=== PATIENT | male | born 1970 | race Caucasian/White ===

== ENCOUNTER 2021-04-12 11:45 | Emergency (ER) | payer OTHER ==
[2021-04-12 12:43] LABS: Absolute Lymphocytes (CBC) 1.4 K/uL (0.7-4.9); Basophils % 0.8 % (0-1.3); Hematocrit 26.2 % (39.6-49.0); Lymphocytes % 22.1 % (15.3-44.8); MPV 8.3 fL (7.6-11.3); RBC Red Blood Cell Count 3.01 M/uL (4.33-5.43)
[2021-04-12 12:47] LABS: Protime INR 1.05
[2021-04-12 13:07] LABS: ALT/SGPT 27 U/L (12-78); AST/SGOT 16 U/L (15-37); Alkaline Phosphatase 53 U/L (45-117); BUN Blood Urea Nitrogen 66 mg/dL (7-18); Bicarbonate 29 mmol/L (21-32); Bilirubin Direct 0.1 mg/dL (0-0.2); Bilirubin Total 0.5 mg/dL (0.2-1.0); Glucose Level 92 mg/dL (74-106); Magnesium 2.5 mg/dL (1.8-2.4); NT PRO-BNP 6002 pg/mL (<125); Protein, Total 7.5 g/dL (6.4-8.2); Sodium Level 143 mmol/L (136-145); Troponin (Emerg Dept Use Only) < 0.02 ng/mL (0.0-0.045)
--- NOTE | 2021-04-12 13:13 | RAD REPORT ---
EXAM DESCRIPTION: Saraht Single View04/12/2021 1:03 pm CLINICAL HISTORY: Chest pain COMPARISON: 2011 FINDINGS: The lungs appear clear of acute infiltrate. The heart is mildly enlarged. Central venous catheter has its tip the superior vena cava . Upper lobe vessels are prominent indicative of pulmonary venous hypertension
--- NOTE | 2021-04-12 14:18 | RAD REPORT ---
EXAM DESCRIPTION: CT - Head Brain Wo Cont - 04/12/2021 1:45 pm CLINICAL HISTORY: Dizziness/weakness COMPARISON: None. TECHNIQUE: Computed axial tomography of the head was obtained. IV contrast was not requested. All CT scans are performed using dose optimization technique as appropriate and may include automated exposure control or mA/KV adjustment according to patient size. FINDINGS: An intracranial bleed is not seen . The ventricles are normal in caliber. No extra-axial fluid collection is noted. Fluid within the sinuses/ mastoids is not seen. IMPRESSION: No acute intracranial abnormality is seen. If patient's symptoms persist MRI of the bra in would be recommended.
--- NOTE | 2021-04-12 16:08 | EDPHYS ---
Physician Documentation [facility] Name: Galo Abarca Age: 50 yrs Sex: Male : 1970 Arrival Date: 04/12/2021 Time: 11:47 Bed 15 Private MD: ED Physician Azam Wu HPI: 04/12 13:06 This 50 yrs old Male presents to ER via Ambulatory with complaints of High pm1 Blood Pressure, Weakness. 13:06 The patient has elevated blood pressure and discovered this at home. Onset: The pm1 symptoms/episode began/occurred yesterday. Modifying factors: The symptoms are aggravated by Unknown. Patient missed dialysis today due to rescheduling by dialysis nurse. Associated signs and symptoms: Pertinent positives: headache, Left arm sensation of weakness without actual focal weakness, Pertinent negatives: chest pain, dizziness, nausea, vomiting. Severity of symptoms: in the emergency department the blood pressure is unchanged. The patient has not experienced similar symptoms in the past. The patient has not recently seen a physician. Historical: - Allergies: 11:56 No Known Allergies; aa5 - PMHx: 11:56 Dialysis; Hypertensive disorder; aa5 - PSHx: 11:56 Dialysis catheter to right upper chest; aa5 - Immunization history:: Client reports having NOT received the Covid vaccine. - Social history:: Smoking status: Patient denies any tobacco usage or history of. ROS: 13:06 Constitutional: Negative for fever, chills, and weight loss. pm1 13:06 Cardiovascular: Negative for chest pain, palpitations, and edema, Respiratory: Negative for shortness of breath, cough, wheezing, and pleuritic chest pain, Abdomen/GI: Negative for abdominal pain, nausea, vomiting, diarrhea, and constipation, Back: Negative for injury and pain, MS/Extremity: Negative for injury and deformity, Skin: Negative for injury, rash, and discoloration. 13:06 Neuro: Positive for headache. 13:06 All other systems are negative. Exam: 13:06 Constitutional: This is a well developed, well nourished patient who is awake, alert, pm1 and in no acute distress. Head/Face: Normocephalic, atraumatic. 13:06 Abdomen/GI: Soft, non-tender, with normal bowel sounds. No distension or tympany. No guarding or rebound. No evidence of tenderness throughout. Back: No spinal tenderness. No costovertebral tenderness. Full range of motion. Skin: Warm, dry with normal turgor. Normal color with no rashes, no lesions, and no evidence of cellulitis. MS/ Extremity: Pulses equal, no cyanosis. Neurovascular intact. Full, normal range of motion. 13:06 Eyes: Exam is negative for acute changes, Extraocular movements: intact throughout, Sclera: no acute changes, icterus, is not appreciated. 13:06 ENT: Exam is negative for acute changes, Mouth: Lips: normal, moist, Oral mucosa: normal, pink and intact, moist. 13:06 Cardiovascular: Exam negative for acute changes, Rate: normal, Rhythm: regular, Pulses: no pulse deficits are appreciated, Edema: is not appreciated. 13:06 Respiratory: Exam negative for acute changes, respiratory distress, shortness of breath. 13:06 Neuro: Exam negative for acute changes, Orientation: is normal, Mentation: is normal, Cranial nerves: CN II- XII are normal as tested, Cerebellar function: normal finger to nose testing, Motor: moves all fours, strength is 5/5 in all extremities, Sensation: is normal, no obvious gross deficits. Vital Signs: 11:52 BP 193 / 102; Pulse 87; Resp 20 S; Temp 99.3(TE); Pulse Ox 96% on R/A; Weight 158.76 kg aa5 (R); Height 6 ft. 2 in. (187.96 cm) (R); 13:24 BP 179 / 88; Pulse 81; Resp 12; Pulse Ox 100% on R/A; tw5 13:53 BP 201 / 99 LA Sitting (auto/lg); Pulse 74; Resp 14; Pulse Ox 100% on R/A; tw5 13:53 BP 204 / 109 RA Sitting (man/lg); Pulse 74; Resp 14; Pulse Ox 100% on R/A; tw5 14:30 BP 169 / 73; Pulse 70; Resp 18; Pulse Ox 100% ; tw5 15:00 BP 154 / 69; Pulse 72; Resp 14; Pulse Ox 100% on R/A; Pain 0/10; tw5 15:15 BP 177 / 83; Pulse 67; Resp 13; Pulse Ox 100% on R/A; tw5 16:00 BP 174 / 84; Pulse 66; Resp 18; Pulse Ox 100% on R/A; tw5 11:52 Body Mass Index 44.94 (158.76 kg, 187.96 cm) aa5 NIH Stroke Scale Scores: 13:31 NIHSS Score: 0 tw5 MDM: 12:21 Patient medically screened. pm1 16:05 Data reviewed: vital signs. Data interpreted: Pulse oximetry: on room air is 100 %. pm1 Interpretation: normal. Counseling: I had a detailed discussion with the patient and/or guardian regarding: the historical points, exam findings, and any diagnostic results supporting the discharge/admit diagnosis, lab results, radiology results, the need for outpatient follow up, a family practitioner, a neurologist, to return to the emergency department if symptoms worsen or persist or if there are any questions or concerns that arise at home. 04/12 12:20 Order name: Basic Metabolic Panel; Complete Time: 13:17 tc5 04/12 12:20 Order name: CBC with Diff; Complete Time: 13:17 tc5 04/12 12:20 Order name: LFT's; Complete Time: 13:17 tc5 04/12 12:20 Order name: Magnesium; Complete Time: 13:17 tc5 04/12 12:20 Order name: NT PRO-BNP; Complete Time: 13:17 tc5 04/12 12:20 Order name: PT-INR; Complete Time: 13:17 tc5 04/12 12:20 Order name: Troponin (emerg Dept Use Only); Complete Time: 13:17 tc5 04/12 12:20 Order name: XRAY Chest (1 view); Complete Time: 13:17 tc5 04/12 12:20 Order name: EKG; Complete Time: 12:21 tc5 04/12 12:20 Order name: Cardiac monitoring; Complete Time: 12:31 tc5 04/12 12:20 Order name: EKG - Nurse/Tech; Complete Time: 12:31 tc5 04/12 12:20 Order name: IV Saline Lock; Complete Time: 13:15 tc5 04/12 12:20 Order name: Labs collected and sent; Complete Time: 12:20 tc5 04/12 13:18 Order name: CT Head Brain wo Cont; Complete Time: 15:17 pm1 04/12 12:20 Order name: O2 Per Protocol; Complete Time: 12:31 tc5 04/12 12:20 Order name: O2 Sat Monitoring; Complete Time: 12:31 tc5 Administered Medications: No medications were administered Disposition: 04/13 08:48 Co-signature as Attending Physician, Azam Wu MD I agree with the assessment and kdr plan of care. Disposition Summary: 04/12/21 16:07 Discharge Ordered Location: Home pm1 Problem: new pm1 Symptoms: have improved pm1 Condition: Stable pm1 Diagnosis - Essential (primary) hypertension pm1 - Weakness pm1 Followup: pm1 - With: Emergency Department - When: As needed - Reason: Worsening of condition Followup: pm1 - With: Private Physician - When: 2 - 3 days - Reason: Recheck today's complaints, Continuance of care, Re-evaluation by your physician Discharge Instructions: - Discharge Summary Sheet pm1 - Hypertension, Adult pm1 - Weakness pm1 - How to Take Your Blood Pressure, Pabi-me-Hpxi pm1 - Managing Your Hypertension pm1 Forms: - Medication Reconciliation Form pm1 - Thank You Letter pm1 - Antibiotic Education pm1 - Prescription Opioid Use pm1 NIH Stroke Scale - NIH Stroke Score Date: 04/12/2021 Time: 13:31 Total Score = 0 1a. Level of Consciousness (LOC) - 0(Alert) 1b. Level of Consciousness (LOC) (Month \T\ Age) - 0(Both) 1c. LOC Commands (Open \T\ Closes Eyes/Chief Analytics Officer) - 0(Both) 2. Best Gaze (Lateral Gaze Paresis) - 0(Normal) 3. Visual Field Loss - 0(No visual loss) 4. Facial Palsy - 0(Normal) 5a. Left Arm: Motor (10-second hold) - 0(No drift) 5b. Right Arm: Motor (10-second hold) - 0(No drift) 6a. Left Leg: Motor (5-second hold - always test supine) - 0(No drift) 6b. Right Leg: Motor (5-second hold - always test supine) - 0(No drift) 7. Limb Ataxia (finger/nose \T\ heel/cedillo - test with eyes open) - 0(Absent) 8. Sensory Loss (pinprick arms/legs/face) - 0(Normal) 9. Best Language: Aphasia (description/naming/reading) - 0(No aphasia) 10. Dysarthria (speech clarity - read or repeat words) - 0(Normal) 11. Extinction and Inattention (visual/tactile/auditory/spatial/personal) - 0(No abnormality) Initials: tw5 Signatures: Dispatcher [employer] Azam Benavides MD MD kdr Calderon, Audri, RN RN aa5 Waqar Pereira, DENTAL SERVICES DIRECTOR DENTAL SERVICES DIRECTOR pm1 Marium Stokes RN RN tc5
--- NOTE | 2021-04-12 16:08 | ER ---
Nurse's Notes [facility] Name: Galo Abarca Age: 50 yrs Sex: Male : 1970 Arrival Date: 04/12/2021 Time: 11:47 Bed 15 Private MD: Diagnosis: Essential (primary) hypertension;Weakness Presentation: 04/12 11:52 Chief complaint: Patient states: "today my blood pressure has been high and my nurse aa5 and my doctor recommended for me to come to the ER". Pt states "I also feel like my left arm is weak and my I feel my head is kind of foggy". No arm drift noted, equal strength noted to mansi arms and legs. Coronavirus screen: At this time, the client does not indicate any symptoms associated with coronavirus-19. Ebola Screen: Patient negative for fever greater than or equal to 101.5 degrees Fahrenheit, and additional compatible Ebola Virus Disease symptoms. Risk Assessment: Do you want to hurt yourself or someone else? Patient reports no desire to harm self or others. Onset of symptoms was April 2021. 11:52 Method Of Arrival: Ambulatory aa5 11:52 Acuity: JAMMIE 2 aa5 11:52 Initial Sepsis Screen: Does the patient meet any 2 criteria? No. Patient's initial aa5 sepsis screen is negative. Does the patient have a suspected source of infection? No. Patient's initial sepsis screen is negative. 13:53 No acute neurological deficit is noted. tw5 Triage Assessment: 16:15 The onset of the patients symptoms was at an unknown time. General: Appears in no tw5 apparent distress. Historical: - Allergies: 11:56 No Known Allergies; aa5 - PMHx: 11:56 Dialysis; Hypertensive disorder; aa5 - PSHx: 11:56 Dialysis catheter to right upper chest; aa5 - Immunization history:: Client reports having NOT received the Covid vaccine. - Social history:: Smoking status: Patient denies any tobacco usage or history of. Screenin:31 Abuse screen: Denies threats or abuse. Denies injuries from another. Nutritional tw5 screening: No deficits noted. Tuberculosis screening: No symptoms or risk factors identified. Fall Risk None identified. Assessment: 13:31 VAN Scoring: Arm Drift: Patients demonstrates NO arm weakness. Patient is VAN Negative. tw5 The patient has not been NPO before screening. The patient is alert, and able to follow commands. The patient does not exhibit slurred or garbled speech. The patient is not exhibiting difficulty speaking. The patient does not exhibit difficulty understanding words. The patient is able to swallow own secretions with no drooling or need for suction. Patient tolerated one teaspoon of water. No drooling, immediate coughing, gurgling, or clearing of the throat was noted. The patient tolerated 90mL of water. No drooling, immediate coughing, gurgling, or clearing of the throat was noted. The patient passed the bedside swallow screening. Oral medications may be given as ordered. Contact Physician for further diet orders. Provider notified of bedside swallow screening results: Waqar Pereira WORK ENVIRONMENT SAFETY INSPECTOR. T-PA (Activase) Screening: Indications: Definite evidence of stroke, ischemic, embolic, or hypertensive: No. General: Appears in no apparent distress. Behavior is calm, cooperative, appropriate for age. Neuro: Level of Consciousness is awake, alert, obeys commands, Oriented to person, place, time, situation, Optometry Assistant are equal bilaterally. 13:33 General: [facility] Randall notifed that patient had his own clonidine medication. Given the tw5 OK to take 0.1mg. Will reevaluate blood pressure when patient returns from CT. 13:52 Reassessment: Patient states feeling better. Patient states symptoms have improved. tw5 14:38 Reassessment: at bedside. tw5 15:00 Reassessment: Patient states feeling better. Patient states symptoms have improved. tw5 General: Appears in no apparent distress. comfortable, Behavior is calm, cooperative, appropriate for age. Pain: Denies pain. Vital Signs: 11:52 BP 193 / 102; Pulse 87; Resp 20 S; Temp 99.3(TE); Pulse Ox 96% on R/A; Weight 158.76 kg aa5 (R); Height 6 ft. 2 in. (187.96 cm) (R); 13:24 BP 179 / 88; Pulse 81; Resp 12; Pulse Ox 100% on R/A; tw5 13:53 BP 201 / 99 LA Sitting (auto/lg); Pulse 74; Resp 14; Pulse Ox 100% on R/A; tw5 13:53 BP 204 / 109 RA Sitting (man/lg); Pulse 74; Resp 14; Pulse Ox 100% on R/A; tw5 14:30 BP 169 / 73; Pulse 70; Resp 18; Pulse Ox 100% ; tw5 15:00 BP 154 / 69; Pulse 72; Resp 14; Pulse Ox 100% on R/A; Pain 0/10; tw5 15:15 BP 177 / 83; Pulse 67; Resp 13; Pulse Ox 100% on R/A; tw5 16:00 BP 174 / 84; Pulse 66; Resp 18; Pulse Ox 100% on R/A; tw5 11:52 Body Mass Index 44.94 (158.76 kg, 187.96 cm) aa5 Vitals: 14:30 Cardiac Rhythm Assessment Regular Sinus rhythm. tw5 NIH Stroke Scale Scores: 13:31 NIHSS Score: 0 tw5 ED Course: 11:47 Patient arrived in ED. ds1 11:52 Arm band placed on. aa5 11:55 Triage completed. aa5 11:56 Baljit Tejada RN is Primary Nurse. ch5 12:19 Waqar Pereira NP is PHCP. pm1 12:19 Azam Wu MD is Attending Physician. pm1 13:03 XRAY Chest (1 view) In Process Unspecified. EDMS 13:31 No apparent distress. Patient moved to CT. tw5 13:31 Patient has correct armband on for positive identification. Bed in low position. Call tw5 light in reach. Side rails up X 1. library monitor on. Pulse ox on. NIBP on. Door closed. 13:44 CT Head Brain wo Cont In Process Unspecified. EDMS 14:38 No provider procedures requiring assistance completed. tw5 15:41 Primary Nurse role handed off by Baljit Tejada, ARAM tw5 15:41 Olena Samuel is Primary Nurse. tw5 16:15 Patient did not have IV access during this emergency room visit. tw5 Administered Medications: No medications were administered Outcome: 16:07 Discharge ordered by . pm1 16:14 Discharged to home ambulatory. tw5 16:14 Condition: good 16:14 Discharge instructions given to patient, Instructed on discharge instructions, follow up and referral plans. Demonstrated understanding of instructions. 16:15 Patient left the ED. tw5 NIH Stroke Scale - NIH Stroke Score Date: 04/12/2021 Time: 13:31 Total Score = 0 1a. Level of Consciousness (LOC) - 0(Alert) 1b. Level of Consciousness (LOC) (Month \\T\\ Age) - 0(Both) 1c. LOC Commands (Open \\T\\ Closes Eyes/Manager Warehouse) - 0(Both) 2. Best Gaze (Lateral Gaze Paresis) - 0(Normal) 3. Visual Field Loss - 0(No visual loss) 4. Facial Palsy - 0(Normal) 5a. Left Arm: Motor (10-second hold) - 0(No drift) 5b. Right Arm: Motor (10-second hold) - 0(No drift) 6a. Left Leg: Motor (5-second hold - always test supine) - 0(No drift) 6b. Right Leg: Motor (5-second hold - always test supine) - 0(No drift) 7. Limb Ataxia (finger/nose \\T\\ heel/cedillo - test with eyes open) - 0(Absent) 8. Sensory Loss (pinprick arms/legs/face) - 0(Normal) 9. Best Language: Aphasia (description/naming/reading) - 0(No aphasia) 10. Dysarthria (speech clarity - read or repeat words) - 0(Normal) 11. Extinction and Inattention (visual/tactile/auditory/spatial/personal) - 0(No abnormality) Initials: tw5 Signatures: Dispatcher [employer] [facility] LottKaro harkins ds1 Taty Molina, RN RN aa5 Waqar Pereira, JORGE LUIS WORK ENVIRONMENT SAFETY INSPECTOR pm1 Baljit Tejada RN RN ch5 Olena Samuel tw5 Corrections: (The following items were deleted from the chart) 11:58 11:52 Chief complaint: Patient states: "today my blood pressure has been high aa5 and my nurse and my doctor recommended for me to come to the ER". Pt states "I also feel like my left arm is weak and my I feel my head is kind of foggy". aa5
[2021-04-12 16:26] VITALS: TEMP 99.3
[2021-04-12 16:28] VITALS: O2SAT 100
[2021-04-12 16:35] VITALS: BP 174/84
--- NOTE | 2021-04-13 11:00 | EKG ---
Test Date: 2021-04-12 Test Time: 12:26:26 [employer] Titles: [employer] MEASUREMENT RESULTS: Intervals: Rate: 83 ND: 202 QRSD: 108 QT: 406 QTc: 477 [place]: P: 51 ND: 202 QRS: 53 T: 47 INTERPRETIVE STATEMENTS: Normal sinus rhythm Normal ECG Compared to ECG 02/21/2012 10:03:48 No significant changes Electronically Signed On 04-13-21 10:57:04 CDT by Oren Sosa
== END 2021-04-12 16:15 | disposition home or self-care (01) ==
LOC: ER 11:45
DX: I10 Essential (primary) hypertension (principal); R53.1 Weakness; Z99.2 Dependence on renal dialysis
CPT/HCPCS: 36415; 70450; 71045; 80048; 80076; 83735; 83880; 84484; 85025; 85610; 93005; 99284

== ENCOUNTER 2021-08-30 19:04 | Emergency (ER) | payer BC, OTHER ==
--- OUTSIDE RECORDS SUMMARY | 2021-08-30 19:07 | XMS REPORT | Continuity of Care Document ---
:1970 Author Organization [facility] t Address [address] [place] [address] Care Team Providers Name Role Phone RONIT Attending Clinician Unavailable WAYNE Attending Clinician Unavailable MD Candida WALKER Attending Clinician Unavailable AARON Attending Clinician Unavailable JOSE CARRINGTON Attending Clinician Unavailable Byron Attending Clinician Unavailable MD MICHAEL BLACK Attending Clinician Unavailable CSEAR Admitting Clinician Unavailable JORGE LUIS PELAYO Admitting Clinician Unavailable JOSE CARRINGTON Admitting Clinician Unavailable Byron Admitting Clinician Unavailable WAYNE Admitting Clinician Unavailable MD MICHAEL BLACK Admitting Clinician Unavailable AARON Admitting Clinician Unavailable MD Candida WALKER Admitting Clinician Unavailable Payers Payer Name Policy Type Policy Number Effective Date Expiration Date S patrick [employer] OPEN ACCESS [id number] 2021 00:00:00 HMO NAP Problems This patient has no known problems. Allergies, Adverse Reactions, Alerts Allergy Allergy Status Severity Reaction(s) Onset Inactive Treating Comm ents Source Name Type Date Date Clinician No Known DA Active U 2020-07 [facility] 07-31 Clear s 00:00: Eli 00 [facility] NO KNOWN Allergy Active [facility] Medications This patient has no known medications. Vital Signs Vital Name Observation Time Observation Value Comments Source HEIGHT 2021-06-11 13:22:00 188 cm WEIGHT 2021-06-11 13:22:00 145.151 kg WEIGHT 2021-06-07 11:55:00 145.151 kg HEIGHT 2021-06-07 11:55:00 188 cm HEIGHT 2021-06-11 13:22:00 188 cm WEIGHT 2021-06-11 13:22:00 145.151 kg WEIGHT 2021-06-07 11:55:00 145.151 kg HEIGHT 2021-06-07 11:55:00 188 cm Procedures Procedure Date / Time Performed Performing Clinician Cresencio mays [id number] 2021-06-01 00:00:00 AFSHIN [facility] [id number] 2021-05-31 00:00:00 JENIFER MICHELLE [facility] [id number] 2021-05-31 00:00:00 AFSHIN [facility] Encounters Start End Encounter Admission Attending Care Care Encounter Source Date/Time Date/Time Type Type Clinicians Facility Department ID 2021-08-17 2021-08-17 Outpatient RONIT, [facility] [id number] [place] 00:00:00 00:00:00 INDERJIT [address] 2021-06-28 2021-06-30 Inpatient VIRGINIE BLACK [facility] 064 [id number] [place] 00:00:00 00:00:[address] 2021-06-24 2021-06-24 Outpatient AARON [facility] [id number] [place] 00:00:00 00:00:00 NOA [address] 2021-06-11 2021-06-11 Outpatient EL ZEB, [facility] [id number] [id number] [facility] 11:20:00 15:40:00 IMRAN 2021-06-09 2021-06-09 [facility] [id number] [facility] 08:03:28 23:59:00 2021-05-31 2021-06-02 Inpatient EM Warren Matthews [facility] INTE [id number] [facility] 11:17:00 14:15:00 [id number] [facility] 2021-05-31 2021-06-02 Inpatient EM Warren Matthews [facility] INTE [id number] [facility] 11:17:00 14:15:00 42 [facility] 2020-09-21 2020-09-24 Inpatient WAYNEVIRGINIE Sainz [facility] 012 [id number] [place] 00:00:00 00:00:[address] 2020-09-04 2020-09-04 [facility] [place] [address] [id number] [id number] [place] 00:00:00 00:00:00 NOA [address] 2020-09-02 2020-09-02 [facility] [id number] [place] 00:00:00 00:00:00 NOA [address] 2020-08-26 2020-08-26 [facility] [id number] [place] 00:00:00 00:00:00 NOA [address] Results Test Description Test Time Test Comments Results Result Comments Source SARS-CoV-2 (COVID-19) RNA [Presence] in Respiratory sp ecimen by 2021-06-24 17:02:09 SHANIA with probe detection Test Item Value Reference Range Interpretation Comme nts SARS-CoV-2 (COVID-19) RNA [Presence] in Respiratory Not detected No t-Detected specimen by SHANIA with probe detection (test code = 21082-2) Whether patient is employed in a healthcare setting (test code = 57965-1) Whether the patient has symptoms related to condition of interest (test code = 79731-9) Patient was hospitalized because of this condition (test code = 66252-7) Whether the patient was admitted to intensive care unit (ICU) for condition of interest (test code = 10718-9) Whether patient resides in a congregate care setting (test code = 64385-0) [id number] 13:31:24 Test Item Value Reference Range Interpretation Comments POTASSIUM (BEAKER) (test code = 5.8 meq/L 3.6-5.5 H 379) Metal Mockup Maker ID - [id number] ID - [id number] ID - [id number] ID - [id number]/RT-[id number] ([facility])2021-06-10 02:43:16 Test Item Value Reference Range Interpretation Comments SARS-COV2/RT-PCR (test code = Negative Negative 9999788) Negative result for this test determines that SARS-CoV-2 RNA was not present in the specimen above the Limit of Detection (LOD). However, Negative results do not preclude SARS-CoV-2 infection and should not be used as the sole basis for treatment or patient management decisions. Negative results must be combined with clinical observations, patient history, and epidemiological information. A false negative result may occur if a specimen is improperly collected, transported, or handled. A false negative result should be considered if patient's recent exposures or clinical presentation indicate that COVID-19 (SARS-CoV-2) is likely and diagnostic tests for other causes of illness are negative. Re-testing should be considered in cases of suspected false negatives.The limit of detection for this assay is 100 copies/mL.This SARS-CoV-2 test is a real-time RT_PCR test intended for the qualitative detection of nucleic acid from SARS-CoV-2 in a nasopharyngeal swab specimen collected from individuals suspected of COVID-19 by their healthcare provider.This test has not been Food and Drug Administration (FDA) cleared or approved. This is a modified version of an approved Emergency Use Authorization (EUA) and is in the process of review by the FDA. Once authorized by the FDA, the issued EUA will be effective until the declaration that circumstances exist justifying the authorization of the emergency use of in vitro diagnostic tests for detection and/or diagnosis of COVID-19 is terminated under Section 564(b)(2) of the Act or the EUA is revoked under Section 564(g) of the Act.Testing was performedusing the Haney SARS-CoV-2 assay.Fact Sheet for Healthcare Providers:https://www.molecular.haney/mary/RT SARS-CoV-2 HCP Fact Sheet 51- 480713.pdfFact Sheet for Healthcare Patients:https://www.molecular.haney/mary/RT SARS-CoV-2 Patient Fact Sheet EN 51-262661U0.pdfBAEPHRA[facility] METABOLIC [id number] 08:56:22 Test Item Value Reference Range Interpretation Comments SODIUM (BEAKER) (test 145 meq/L 135-148 code = 381) POTASSIUM (BEAKER) 4.7 meq/L 3.6-5.5 (test code = 379) CHLORIDE (BEAKER) 104 meq/L 98-106 (test code = 382) CO2 (BEAKER) (test 27 meq/L 20-29 code = 355) BLOOD UREA NITROGEN 61 mg/dL 10-26 H (BEAKER) (test code = 354) CREATININE (BEAKER) 9.44 mg/dL 0.50-1.20 H (test code = 358) GLUCOSE RANDOM 110 mg/dL 70-110 (BEAKER) (test code = 652) CALCIUM (BEAKER) 8.0 mg/dL 8.5-10.5 L (test code = 697) EGFR (BEAKER) (test INSUFFIC IENT CLINICAL code = 1092) DATA TO CALCULA TE ESTIMATED GFR. Metal Mockup Maker ID - LITOOperator ID - LITOOperator ID - LITOOperator ID - LITOOperator ID - LITOOperator ID - LITOOperator ID - LITOOperator ID - LITOOperator ID - LITOOperator ID - LITOOperator ID - LITOOperator ID - LITOOperator ID - ELISSA [id number] 08:47:38 Test Item Value Reference Range Interpretation Comments PROTIME (BEAKER) (test 10.7 seconds 9.3-12.0 Final Information code = 759) (Auto Output) INR (BEAKER) (test 0.96 See_Comment Final Inf ormation code = 370) (Auto Output) [Automated mess age] The system Wibiya generated this result transmit rios reference range : <=5.90. The reference range was not used to interpret this result as normal/abnormal . PARTIAL THROMBOPLASTIN 24.0 seconds 23.0-35.0 Final Information TIME (BEAKER) (test (Auto Ou tput) code = 760) RECOMMENDED COUMADIN/WARFARIN INR THERAPY RANGESSTANDARD DOSE: 2.0 - 3.0 Includes: PROPHYLAXIS forvenous thrombosis, systemic embolization; TREATMENT for venous thrombosis and/or pulmonary embolus.HIGH RISK: Target INR is 2.5-3.5 for patients with mechanical heart valves.CBC W/PLT COUNT & AUTO DIFFERENTIAL 2021-06-09 08:37:58 Test Item Value Reference Range Interpretation Comments WHITE BLOOD CELL COUNT (BEAKER) 5.3 K/ L 4.0-10.0 (test code = 775) RED BLOOD CELL COUNT (BEAKER) 2.76 M/ L 4.20-5.80 L (test code = 761) HEMOGLOBIN (BEAKER) (test code = 8.2 GM/DL 13.0-16.8 L 410) HEMATOCRIT (BEAKER) (test code = 26.4 % 36.0-50.0 L 411) MEAN CORPUSCULAR VOLUME (BEAKER) 95.7 fL 82.0-99.0 (test code = 753) MEAN CORPUSCULAR HEMOGLOBIN 29.7 pg 27.0-33.0 (BEAKER) (test code = 751) MEAN CORPUSCULAR HEMOGLOBIN CONC 31.1 GM/DL 32.0-36.0 L (BEAKER) (test code = 752) RED CELL DISTRIBUTION WIDTH 13.2 % 12.0-15.0 (BEAKER) (test code = 412) PLATELET COUNT (BEAKER) (test 203 K/CU MM 150-430 code = 756) MEAN PLATELET VOLUME (BEAKER) 10.2 fL 6.0-11.5 (test code = 754) NUCLEATED RED BLOOD CELLS 0 /100 WBC 0-0 (BEAKER) (test code = 413) NEUTROPHILS RELATIVE PERCENT 55 % (BEAKER) (test code = 429) LYMPHOCYTES RELATIVE PERCENT 31 % (BEAKER) (test code = 430) MONOCYTES RELATIVE PERCENT 10 % (BEAKER) (test code = 431) EOSINOPHILS RELATIVE PERCENT 3 % (BEAKER) (test code = 432) BASOPHILS RELATIVE PERCENT 1 % (BEAKER) (test code = 437) NEUTROPHILS ABSOLUTE COUNT 2.94 K/ L 1.80-8.00 (BEAKER) (test code = 670) LYMPHOCYTES ABSOLUTE COUNT 1.63 K/ L 1.48-4.50 (BEAKER) (test code = 414) MONOCYTES ABSOLUTE COUNT (BEAKER) 0.55 K/ L 0.00-1.30 (test code = 415) EOSINOPHILS ABSOLUTE COUNT 0.17 K/ L 0.00-0.50 (BEAKER) (test code = 416) BASOPHILS ABSOLUTE COUNT (BEAKER) 0.03 K/ L 0.00-0.20 (test code = 417) IMMATURE GRANULOCYTES-RELATIVE 0 % 0-0 PERCENT (BEAKER) (test code = 2801) GLUCOSE [id number] 09:05:00 Test Item Value Reference Range Interpretation Comments GLUCOSE BEDSIDE (test 91 MG/DL 70-110 N Perfor med by certified code = GLUBED) groover and striper operator at [facility] ACUTE HEPATITIS [id number] 06:12:00 Test Item Value Reference Range Interpretation Comments AB HEPATITIS A IGM (test NON REACTIVE INDEX NON REACT. code = HAVMAB) AG HEPATITIS B SURFACE NON REACTIVE INDEX NonReactive (test code = HBSAG) AB HEPATITIS B CORE IGM NON REACTIVE INDEX NON REACT. (test code = HBCMAB) AB HEPATITIS C (test code NON REACTIVE INDEX NON REACT. = HCVAB) COMMENTS: At start of hemodialysisAB HEPATITIS B [id number] 06:12:00 Test Item Value Reference Range Interpretation Comments AB HEPATITIS B < 3.1 mIU/mL See_Comment L Status of I mmunity SURFACE (test code = HBSAB) Anti-HBs Level --- I nconsi stent with Immu nity 0.0 - 9.9Consistent w ith Immunity >9.9Performed A t: HD [facility] [address] [id number] Demar Soto MD Ph:[phone] [Automated mess age] The system Wibiya generated this result transmitted ref erence range: Immunity >9.9. The reference r rafat was not used to interpret this result as normal/abnor mal. COMMENTS: At start of hemodialysisGLUCOSE [id number] 06:03:00 Test Item Value Reference Range Interpretation Comments GLUCOSE BEDSIDE (test 101 MG/DL 70-110 N Perfor med by certified code = GLUBED) groover and striper operator at [facility] COMPREHENSIVE METABOLIC [id number] 05:37:00 Test Item Value Reference Range Interpretation Comments SODIUM (test code = NA) 148 mEq/L 134-147 H POTASSIUM (test code = 4.0 mEq/L 3.4-5.0 N K) CHLORIDE (test code = 108 mEq/L 100-108 N CL) CARBON DIOXIDE (test 28 mEq/l 21-33 N code = CO2) ANION GAP (test code = 16 0-20 N GAP) GLUCOSE (test code = 101 mg/dL 70-110 GLU) BLOOD UREA NITROGEN 56 mg/dL 7-18 H (test code = BUN) GLOMERULAR FILTRATION 6.9 90-95 L Units of measure = RATE (test code = GFR) ml/mi n/1.73 m2 CREATININE (test code = 8.3 mg/dL 0.6-1.3 H CREAT) TOTAL PROTEIN (test 6.7 g/dL 6.4-8.2 N code = PROT) ALBUMIN (test code = 3.40 g/dL 3.4-5.0 N ALB) CALCIUM (test code = 7.4 mg/dL 8.0-10.5 L CA) BILIRUBIN TOTAL (test 0.40 mg/dL 0.0-1.0 N code = BILT) SGOT/AST (test code = 9 IUnit/L 15-37 L AST) SGPT/ALT (test code = 13 IUnit/L 30-65 L ALT) ALKALINE PHOSPHATASE 56 IUnit/L 20-125 N TOTAL (test code = ALKP) [id number] 05:37:00 Test Item Value Reference Range Interpretation Comments PHOSPHOROUS (test code = PHOS) 8.7 MG/DL 2.5-4.9 H [id number] 05:37:00 Test Item Value Reference Range Interpretation Comments MAGNESIUM (test code = MAG) 1.69 mg/dL 1.80-2.40 L CALCIUM [id number] 05:37:00 Test Item Value Reference Range Interpretation Comments CALCIUM IONIZED (test code = BERTHA) 1.03 MMOL/L 1.12-1.32 L CBC W/AUTO [id number] 05:08:00 Test Item Value Reference Range Interpretation Comments WHITE BLOOD CELL (test code = 5.1 x10 3/uL 4.5-11.0 N WBC) RED BLOOD CELL (test code = 2.53 x10 6/uL 4.00-5.60 L RBC) HEMOGLOBIN (test code = HGB) 7.7 g/dL 12.5-16.9 L HEMATOCRIT (test code = HCT) 24.3 % 37.5-50.7 L MEAN CELL VOLUME (test code = 96.0 fL 81.0-99.0 N MCV) MEAN CELL HGB (test code = MCH) 30.4 pg 27.0-33.0 N MEAN CELL HGB CONCETRATION 31.7 g/dL 33.0-37.0 L (test code = MCHC) RED CELL DISTRIBUTION WIDTH CV 13.4 % 11.5-14.5 N (test code = RDW) RED CELL DISTRIBUTION WIDTH SD 47.2 fL 37.0-54.0 N (test code = RDW-SD) PLATELET COUNT (test code = 145 x10 3/uL 150-400 L PLT) MEAN PLATELET VOLUME (test code 10.8 fL 7.0-9.0 H = MPV) NEUTROPHIL % (test code = NT%) 53.5 % 56.0-77.0 L IMMATURE GRANULOCYTE % (test 0.2 % 0.0-2.0 N code = IG%) LYMPHOCYTE % (test code = LY%) 31.2 % 14.0-32.0 N MONOCYTE % (test code = MO%) 10.9 % 4.8-9.0 H EOSINOPHIL % (test code = EO%) 3.6 % 0.3-3.7 N BASOPHIL % (test code = BA%) 0.6 % 0.0-2.0 N NUCLEATED RBC % (test code = 0.0 % 0-0 N NRBC%) NEUTROPHIL # (test code = NT#) 2.71 x10 3/uL 2.0-7.6 N IMMATURE GRANULOCYTE # (test 0.01 x10 3/uL 0.00-0.03 N code = IG#) LYMPHOCYTE # (test code = LY#) 1.58 x10 3/uL 1.0-3.8 N MONOCYTE # (test code = MO#) 0.55 x10 3/uL 0.1-0.8 N EOSINOPHIL # (test code = EO#) 0.18 x10 3/uL 0.0-0.2 N BASOPHIL # (test code = BA#) 0.03 x10 3/uL 0.0-0.2 N NUCLEATED RBC # (test code = 0.00 x10 3/uL 0.0-0.1 N NRBC#) MANUAL DIFF REQUIRED (test code NO = MDIFF) GLUCOSE [id number] 00:20:00 Test Item Value Reference Range Interpretation Comments GLUCOSE BEDSIDE (test 116 MG/DL 70-110 H Perfor med by certified code = GLUBED) groover and striper operator at [facility] GLUCOSE [id number] 20:59:00 Test Item Value Reference Range Interpretation Comments GLUCOSE BEDSIDE (test 113 MG/DL 70-110 H Perfor med by certified code = GLUBED) groover and striper operator at [facility] GLUCOSE [id number] 20:31:00 Test Item Value Reference Range Interpretation Comments GLUCOSE BEDSIDE (test 126 MG/DL 70-110 H Perfor med by certified code = GLUBED) groover and striper operator at [facility] GLUCOSE [id number] 20:31:00 Test Item Value Reference Range Interpretation Comments GLUCOSE BEDSIDE (test 86 MG/DL 70-110 N Perfor med by certified code = GLUBED) groover and striper operator at [facility] GLUCOSE [id number] 20:31:00 Test Item Value Reference Range Interpretation Comments GLUCOSE BEDSIDE (test 162 MG/DL 70-110 H Perfor med by certified code = GLUBED) groover and striper operator at [facility] COMPREHENSIVE METABOLIC [id number] 09:19:00 Test Item Value Reference Range Interpretation Comments SODIUM (test code = NA) 144 mEq/L 134-147 N POTASSIUM (test code = 4.3 mEq/L 3.4-5.0 N K) CHLORIDE (test code = 107 mEq/L 100-108 N CL) CARBON DIOXIDE (test 26 mEq/l 21-33 N code = CO2) ANION GAP (test code = 15 0-20 N GAP) GLUCOSE (test code = 176 mg/dL 70-110 H GLU) BLOOD UREA NITROGEN 77 mg/dL 7-18 H (test code = BUN) GLOMERULAR FILTRATION 5.7 90-95 L Units of measure = RATE (test code = GFR) ml/mi n/1.73 m2 CREATININE (test code = 9.7 mg/dL 0.6-1.3 H CREAT) TOTAL PROTEIN (test 6.6 g/dL 6.4-8.2 N code = PROT) ALBUMIN (test code = 3.60 g/dL 3.4-5.0 N ALB) CALCIUM (test code = 7.3 mg/dL 8.0-10.5 L CA) BILIRUBIN TOTAL (test 0.40 mg/dL 0.0-1.0 N code = BILT) SGOT/AST (test code = 11 IUnit/L 15-37 L AST) SGPT/ALT (test code = 16 IUnit/L 30-65 L ALT) ALKALINE PHOSPHATASE 61 IUnit/L 20-125 N TOTAL (test code = ALKP) [id number] 09:19:00 Test Item Value Reference Range Interpretation Comments PHOSPHOROUS (test code = PHOS) 8.7 MG/DL 2.5-4.9 H [id number] 09:19:00 Test Item Value Reference Range Interpretation Comments MAGNESIUM (test code = MAG) 1.76 mg/dL 1.80-2.40 L CALCIUM [id number] 09:19:00 Test Item Value Reference Range Interpretation Comments CALCIUM IONIZED (test code = BERTHA) 0.95 MMOL/L 1.12-1.32 L CBC W/AUTO [id number] 09:12:00 Test Item Value Reference Range Interpretation Comments WHITE BLOOD CELL (test code = 5.5 x10 3/uL 4.5-11.0 N WBC) RED BLOOD CELL (test code = 2.59 x10 6/uL 4.00-5.60 L RBC) HEMOGLOBIN (test code = HGB) 7.9 g/dL 12.5-16.9 L HEMATOCRIT (test code = HCT) 24.8 % 37.5-50.7 L MEAN CELL VOLUME (test code = 95.8 fL 81.0-99.0 N MCV) MEAN CELL HGB (test code = MCH) 30.5 pg 27.0-33.0 N MEAN CELL HGB CONCETRATION 31.9 g/dL 33.0-37.0 L (test code = MCHC) RED CELL DISTRIBUTION WIDTH CV 13.4 % 11.5-14.5 N (test code = RDW) RED CELL DISTRIBUTION WIDTH SD 47.4 fL 37.0-54.0 N (test code = RDW-SD) PLATELET COUNT (test code = 136 x10 3/uL 150-400 L PLT) MEAN PLATELET VOLUME (test code 10.7 fL 7.0-9.0 H = MPV) NEUTROPHIL % (test code = NT%) 69.3 % 56.0-77.0 N IMMATURE GRANULOCYTE % (test 0.2 % 0.0-2.0 N code = IG%) LYMPHOCYTE % (test code = LY%) 21.5 % 14.0-32.0 N MONOCYTE % (test code = MO%) 7.1 % 4.8-9.0 N EOSINOPHIL % (test code = EO%) 1.4 % 0.3-3.7 N BASOPHIL % (test code = BA%) 0.5 % 0.0-2.0 N NUCLEATED RBC % (test code = 0.0 % 0-0 N NRBC%) NEUTROPHIL # (test code = NT#) 3.83 x10 3/uL 2.0-7.6 N IMMATURE GRANULOCYTE # (test 0.01 x10 3/uL 0.00-0.03 N code = IG#) LYMPHOCYTE # (test code = LY#) 1.19 x10 3/uL 1.0-3.8 N MONOCYTE # (test code = MO#) 0.39 x10 3/uL 0.1-0.8 N EOSINOPHIL # (test code = EO#) 0.08 x10 3/uL 0.0-0.2 N BASOPHIL # (test code = BA#) 0.03 x10 3/uL 0.0-0.2 N NUCLEATED RBC # (test code = 0.00 x10 3/uL 0.0-0.1 N NRBC#) MANUAL DIFF REQUIRED (test code NO = MDIFF) GLUCOSE [id number] 07:22:00 Test Item Value Reference Range Interpretation Comments GLUCOSE BEDSIDE (test 96 MG/DL 70-110 N Perfor med by certified code = GLUBED) groover and striper operator at [facility] GLUCOSE [id number] 01:22:00 Test Item Value Reference Range Interpretation Comments GLUCOSE BEDSIDE (test 121 MG/DL 70-110 H Perfor med by certified code = GLUBED) groover and striper operator at [facility] BASIC METABOLIC [id number] 22:27:00 Test Item Value Reference Range Interpretation Comments SODIUM (test code = NA) 145 mEq/L 134-147 N POTASSIUM (test code = 4.0 mEq/L 3.4-5.0 K) CHLORIDE (test code = 105 mEq/L 100-108 N CL) CARBON DIOXIDE (test 26 mEq/l 21-33 code = CO2) ANION GAP (test code = 18 0-20 N GAP) GLUCOSE (test code = 129 mg/dL 70-110 H GLU) BLOOD UREA NITROGEN 60 mg/dL 7-18 H (test code = BUN) GLOMERULAR FILTRATION 6.0 90-95 L Units of measure = RATE (test code = GFR) ml/mi n/1.73 m2 CREATININE (test code = 9.3 mg/dL 0.6-1.3 H CREAT) CALCIUM (test code = 7.8 mg/dL 8.0-10.5 L CA) GLUCOSE [id number] 22:13:00 Test Item Value Reference Range Interpretation Comments GLUCOSE BEDSIDE (test 121 MG/DL 70-110 H Perfor med by certified code = GLUBED) groover and striper operator at [facility] GLUCOSE [id number] 17:32:00 Test Item Value Reference Range Interpretation Comments GLUCOSE BEDSIDE (test 123 MG/DL 70-110 H Perfor med by certified code = GLUBED) groover and striper operator at [facility] BASIC METABOLIC [id number] 12:37:00 Test Item Value Reference Range Interpretation Comments SODIUM (test code = 143 mEq/L 134-147 N NA) POTASSIUM (test code = 7.5 mEq/L 3.4-5.0 HH Criti tommie result K) called to Ayanna MARTINEZ [facility] at 12 05/31/21Nurse r ead back result and tech confirmed it's correct? YES CHLORIDE (test code = 107 mEq/L 100-108 N CL) CARBON DIOXIDE (test 20 mEq/l 21-33 L code = CO2) ANION GAP (test code = 24 0-20 H GAP) GLUCOSE (test code = 142 mg/dL 70-110 H GLU) BLOOD UREA NITROGEN 99 mg/dL 7-18 H (test code = BUN) GLOMERULAR FILTRATION 4.2 90-95 L Units of measure = RATE (test code = GFR) ml/mi n/1.73 m2 CREATININE (test code 12.6 mg/dL 0.6-1.3 H = CREAT) CALCIUM (test code = 7.7 mg/dL 8.0-10.5 L CA) SARS-CoV-2 (COVID-19) RNA [Presence] in Respiratory specimen by SHANIA with probe [id number] 03:33:08 Test Item Value Reference Range Interpretation Comments SARS-CoV-2 (COVID-19) RNA Not detected Not-Detected [Presence] in Respiratory specimen by SHANIA with probe detection (test code = 77052-7) SARS-CoV-2 (COVID-19) RNA [Presence] in Respiratory specimen by SHANIA with probe [id number] 23:51:41 Test Item Value Reference Range Interpretation Comments SARS-CoV-2 (COVID-19) RNA Not detected Not-Detected [Presence] in Respiratory specimen by SHANIA with probe detection (test code = 87672-7)
[2021-08-30] MEDS ORDERED: HYDRALAZINE HCL 20 MG/ML VIAL ONE (21:02)
[2021-08-30 22:08] LABS: Absolute Lymphocytes (CBC) 1.3 K/uL (0.7-4.9); Hematocrit 32.5 % (39.6-49.0); Lymphocytes % 26.5 % (15.3-44.8); MPV 8.2 fL (7.6-11.3); RBC Red Blood Cell Count 3.61 M/uL (4.33-5.43)
[2021-08-30 22:34] LABS: Albumin 4.1 g/dL (3.4-5.0); Bilirubin Total 0.5 mg/dL (0.2-1.0); Protein, Total 7.4 g/dL (6.4-8.2)
--- NOTE | 2021-08-30 23:50 | ER ---
Nurse's Notes [facility] Name: Galo Abarca Age: 51 yrs Sex: Male : 1970 Arrival Date: 08/30/2021 Time: 19:07 Bed 18 Private MD: Diagnosis: Essential (primary) hypertension Presentation: 08/30 19:11 Chief complaint: Patient states: B/P elevated towards end of dialysis treatment today. tk1 Coronavirus screen: Vaccine status: Patient reports receiving the 1st dose of the Covid vaccine. Date March 09, 2021 Only one shot with [employer] Client denies travel out of the [place] in the last 14 days. At this time, the client does not indicate any symptoms associated with coronavirus-19. Ebola Screen: Patient negative for fever greater than or equal to 101.5 degrees Fahrenheit, and additional compatible Ebola Virus Disease symptoms Patient denies exposure to infectious person. Initial Sepsis Screen: Does the patient meet any 2 criteria? No. Patient's initial sepsis screen is negative. Does the patient have a suspected source of infection? No. Patient's initial sepsis screen is negative. Risk Assessment: Do you want to hurt yourself or someone else? Patient reports no desire to harm self or others. Onset of symptoms was August 30, 2021 at 19:00. 19:11 Method Of Arrival: Ambulatory tk1 19:11 Acuity: JAMMIE 4 tk1 Triage Assessment: 19:21 General: Appears in no apparent distress. comfortable, obese, well groomed, well tk1 developed, well nourished, Behavior is calm, cooperative, appropriate for age. Pain: Denies pain. EENT: No deficits noted. No signs and/or symptoms were reported regarding the EENT system. Neuro: No deficits noted. Level of Consciousness is awake, alert, obeys commands, Oriented to person, time, situation, Appropriate for age Workday Manager are equal bilaterally Moves all extremities. Gait is steady, Speech is normal. Cardiovascular: No deficits noted. Reports. Respiratory: Airway is patent Trachea midline Respiratory effort is even, unlabored. Historical: - Home Meds: 19:21 clonidine HCl 0.2 mg Oral tab 1 tab 2 times per day [Active]; metolazone 5 mg oral tab tk1 [Active]; sevelamer HCl 800 mg oral tab 3 tabs 3 times per day for with meals [Active]; sucroferric oxyhydroxide 500 mg oral chew 1 tab 3 times per day [Active]; hydralazine 25 mg Oral tab 1 tab 2 times per day [Active]; - PMHx: 19:21 Dialysis; Hypertensive disorder; tk1 - PSHx: 19:21 Dialysis catheter to right upper chest; tk1 - Immunization history:: Adult Immunizations Flu vaccine is not up to date. Patient has never been vaccinated. - Social history:: Smoking status: Patient/guardian denies using tobacco, but has a distant history of tobacco abuse. Screenin:15 Abuse screen: Denies threats or abuse. Nutritional screening: No deficits noted. vc1 Tuberculosis screening: No symptoms or risk factors identified. Fall Risk None identified. Assessment: 20:15 General: Appears in no apparent distress. comfortable, Behavior is calm, cooperative, vc1 appropriate for age. Pain: Denies pain. Cardiovascular: Denies chest pain, Patient's skin is warm and dry. Respiratory: Airway is patent Respiratory effort is even, unlabored, Respiratory pattern is regular, symmetrical. 22:00 Reassessment: Patient and/or family updated on plan of care and expected duration. Pain vc1 level reassessed. Patient is alert, oriented x 3, equal unlabored respirations, skin warm/dry/pink. Patient denies pain at this time. Vital Signs: 19:11 Pulse 63 MON; Resp 20 S; Temp 97.8(T); Pulse Ox 100% ; Weight 149.1 kg; Height 6 ft. 2 tk1 in. (187.96 cm); Pain 0/10; 19:11 BP 212 / 80 RA Sitting (auto/reg); tk1 20:00 BP 194 / 91; Pulse 63; Resp 14; Pulse Ox 100% on R/A; vc1 21:56 BP 160 / 75; Pulse 63; Resp 12; Pulse Ox 100% on R/A; vc1 23:04 BP 108 / 47; Pulse 63; Resp 12; Pulse Ox 96% on R/A; vc1 23:30 BP 101 / 89; Pulse 60; Resp 11; Pulse Ox 97% ; vc1 23:49 BP 101 / 89; Pulse 61; Resp 11; Pulse Ox 99% on R/A; vc1 23:57 BP 106 / 45; Pulse 70; Resp 10; Pulse Ox 97% on R/A; vc1 19:11 Body Mass Index 42.20 (149.10 kg, 187.96 cm) tk1 ED Course: 19:07 Patient arrived in ED. as 19:19 Triage completed. tk1 19:37 Waqar Pereira NP is PHCP. pm1 19:37 Reed Vaughn MD is Attending Physician. pm1 19:58 Lulu Coppola RN is Primary Nurse. vc1 20:15 Missed attempt(s): 22 gauge in right antecubital area. Bleeding controlled, band aid vc1 applied, catheter tip intact. 20:15 Arm band placed on right wrist. vc1 20:15 Patient has correct armband on for positive identification. Bed in low position. Call vc1 light in reach. nuclear monitoring technician on. Pulse ox on. NIBP on. 22:00 Initial lab(s) drawn, by me, sent to lab. Inserted saline lock: 18 gauge in right bb antecubital area, using aseptic technique. Blood collected. 22:04 CMP Sent. vc1 22:04 CBC with Diff Sent. vc1 08/31 00:03 No provider procedures requiring assistance completed. IV discontinued, intact, vc1 bleeding controlled, No redness/swelling at site. Pressure dressing applied. Patient maintains SpO2 saturation greater than 95% on room air. Administered Medications: 08/30 22:07 Drug: hydrALAZINE 10 mg Route: IVP; Site: right antecubital; vc1 23:30 Follow up: BP 101 / 89; Pulse 60 bpm; Resp 11 bpm; Pulse Ox 97% ; Response: No adverse vc1 reaction; Blood pressure is lowered Outcome: 23:49 Discharge ordered by . pm1 03 00:04 Discharged to home ambulatory, with family. vc1 Condition: good Discharge instructions given to patient, Instructed on discharge instructions, follow up and referral plans. Demonstrated understanding of instructions, follow-up care. 00:04 Patient left the ED. vc1 Signatures: Stephie Harry Brenda, RN RN bb Waqar Pereira NP RAIL EQUIPMENT OPERATOR pm1 Eleni Lopez tk1 Lulu Coppola RN RN vc1
--- NOTE | 2021-08-30 23:50 | EDPHYS ---
Physician Documentation [facility] Name: Galo Abarca Age: 51 yrs Sex: Male : 1970 Arrival Date: 08/30/2021 Time: 19:07 Bed 18 Private MD: ED Physician Reed Vaughn HPI: 08/30 20:25 This 51 yrs old Male presents to ER via Ambulatory with complaints of High Blood pm1 Pressure. 20:25 The patient has elevated blood pressure and discovered this at dialysis center. Onset: pm1 The symptoms/episode began/occurred ongoing for the past few week. Associated signs and symptoms: Pertinent positives: headache, Pertinent negatives: chest pain, dizziness, vomiting, shortness of breath. Severity of symptoms: in the emergency department the blood pressure is 212/80. The patient has experienced similar episodes in the past, a few times. Patient presents to the ER with complaints of hypertension towards the end of dialysis treatment today. Patient has been recently prescribed clonidine scheduled daily and he was surprised that his blood pressure did not improve with it. Patient did not complete dialysis because the dialysis nurse stopped it when his blood pressure was elevated . Historical: - Home Meds: 19:21 clonidine HCl 0.2 mg Oral tab 1 tab 2 times per day [Active]; metolazone 5 mg oral tab tk1 [Active]; sevelamer HCl 800 mg oral tab 3 tabs 3 times per day for with meals [Active]; sucroferric oxyhydroxide 500 mg oral chew 1 tab 3 times per day [Active]; hydralazine 25 mg Oral tab 1 tab 2 times per day [Active]; - PMHx: 19:21 Dialysis; Hypertensive disorder; tk1 - PSHx: 19:21 Dialysis catheter to right upper chest; tk1 - Immunization history:: Adult Immunizations Flu vaccine is not up to date. Patient has never been vaccinated. - Social history:: Smoking status: Patient/guardian denies using tobacco, but has a distant history of tobacco abuse. ROS: 20:25 Constitutional: Negative for fever, chills, and weight loss, Cardiovascular: Negative pm1 for chest pain, palpitations, and edema, Respiratory: Negative for shortness of breath, cough, wheezing, and pleuritic chest pain, Abdomen/GI: Negative for abdominal pain, nausea, vomiting, diarrhea, and constipation, MS/Extremity: Negative for injury and deformity, Skin: Negative for injury, rash, and discoloration. 20:25 Neuro: Positive for headache, Negative for numbness, tingling, weakness. 20:25 All other systems are negative. Exam: 20:25 Constitutional: This is a well developed, well nourished patient who is awake, alert, pm1 and in no acute distress. Head/Face: Normocephalic, atraumatic. 20:25 Back: No spinal tenderness. No costovertebral tenderness. Full range of motion. Skin: Warm, dry with normal turgor. Normal color with no rashes, no lesions, and no evidence of cellulitis. MS/ Extremity: Pulses equal, no cyanosis. Neurovascular intact. Full, normal range of motion. 20:25 Eyes: Exam is negative for acute changes, Conjunctiva: no acute changes, no injection, Sclera: no acute changes, icterus, is not appreciated. 20:25 ENT: Exam is negative for acute changes, Mouth: Lips: normal, moist, Oral mucosa: normal, pink and intact, moist. 20:25 Cardiovascular: Exam negative for acute changes, Rate: normal, Rhythm: regular, Pulses: no pulse deficits are appreciated. 20:25 Respiratory: Exam negative for acute changes, respiratory distress, shortness of breath, Breath sounds: are clear throughout. 20:25 Abdomen/GI: Exam negative for acute changes, Inspection: obese Palpation: abdomen is soft and non-tender, in all quadrants. 20:25 Neuro: Exam negative for acute changes, Orientation: is normal, Mentation: is normal, Motor: is normal, moves all fours. Vital Signs: 19:11 Pulse 63 MON; Resp 20 S; Temp 97.8(T); Pulse Ox 100% ; Weight 149.1 kg; Height 6 ft. 2 tk1 in. (187.96 cm); Pain 0/10; 19:11 BP 212 / 80 RA Sitting (auto/reg); tk1 20:00 BP 194 / 91; Pulse 63; Resp 14; Pulse Ox 100% on R/A; vc1 21:56 BP 160 / 75; Pulse 63; Resp 12; Pulse Ox 100% on R/A; vc1 23:04 BP 108 / 47; Pulse 63; Resp 12; Pulse Ox 96% on R/A; vc1 23:30 BP 101 / 89; Pulse 60; Resp 11; Pulse Ox 97% ; vc1 23:49 BP 101 / 89; Pulse 61; Resp 11; Pulse Ox 99% on R/A; vc1 23:57 BP 106 / 45; Pulse 70; Resp 10; Pulse Ox 97% on R/A; vc1 19:11 Body Mass Index 42.20 (149.10 kg, 187.96 cm) tk1 MDM: 20:11 Patient medically screened. pm1 21:58 Data reviewed: vital signs. Data interpreted: Pulse oximetry: on room air is 100 %. pm1 Interpretation: normal. 23:49 Counseling: I had a detailed discussion with the patient and/or guardian regarding: the pm1 historical points, exam findings, and any diagnostic results supporting the discharge/admit diagnosis, lab results, the need for outpatient follow up, to return to the emergency department if symptoms worsen or persist or if there are any questions or concerns that arise at home. 23:49 Special discussion: I have referred the patient to see his PCP for further evaluation pm1 of high blood pressure. 08/30 20:25 Order name: CBC with Diff; Complete Time: 22:17 pm1 08/30 20:25 Order name: CMP; Complete Time: 22:37 pm1 08/30 20:25 Order name: IV Saline Lock; Complete Time: 22:03 pm1 Administered Medications: 22:07 Drug: hydrALAZINE 10 mg Route: IVP; Site: right antecubital; vc1 23:30 Follow up: BP 101 / 89; Pulse 60 bpm; Resp 11 bpm; Pulse Ox 97% ; Response: No adverse vc1 reaction; Blood pressure is lowered Disposition: 08/31 00:36 Co-signature as Attending Physician, Reed Vaughn MD I agree with the assessment and rn plan of care. Attestation: The patient's history, exam findings, diagnostics, and a summary of any interventions or procedures was reviewed in detail with Waqar Pereira NP. Disposition Summary: 08/30/21 23:49 Discharge Ordered Location: Home pm1 Problem: new pm1 Symptoms: have improved pm1 Condition: Stable pm1 Diagnosis - Essential (primary) hypertension pm1 Followup: pm1 - With: Emergency Department - When: As needed - Reason: Worsening of condition Followup: pm1 - With: Private Physician - When: 2 - 3 days - Reason: Recheck today's complaints, Continuance of care, Re-evaluation by your physician Discharge Instructions: - Discharge Summary Sheet pm1 - Hypertension, Adult pm1 - How to Take Your Blood Pressure, [id number] pm1 - Managing Your Hypertension pm1 Forms: - Medication Reconciliation Form pm1 - Thank You Letter pm1 - Antibiotic Education pm1 - Prescription Opioid Use pm1 Signatures: Dispatcher [employer] EDMS Reed Vaughn MD MD rn Marinas, Patrick, NP ARTIST SCIENTIFIC pm1 Eleni Lopez tk1 Lulu Coppola RN RN vc1
[2021-08-31 00:38] VITALS: TEMP 97.8
[2021-08-31 00:45] VITALS: BP 106/45; O2SAT 97
== END 2021-08-31 00:04 | disposition home or self-care (01) ==
LOC: ER 19:04
DX: I10 Essential (primary) hypertension (principal); Z99.2 Dependence on renal dialysis
CPT/HCPCS: 85025; 36415; 80053; 96374; 99285; J0360

== ENCOUNTER 2021-09-02 17:07 | Observation (INO) | payer BC ==
--- OUTSIDE RECORDS SUMMARY | 2021-09-02 17:10 | XMS REPORT | Continuity of Care Document ---
:1970 Author Organization [facility] t Address [address] [place] [address] Care Team Providers Name Role Phone RONIT Attending Clinician Unavailable WAYNE Attending Clinician Unavailable MD Sindy WALKER. Attending Clinician Unavailable AARON Attending Clinician Unavailable JOSE CARRINGTON Attending Clinician Unavailable Byron Attending Clinician Unavailable MD MICHAEL BLACK Attending Clinician Unavailable CESAR Admitting Clinician Unavailable GITAJORGE LUIS RANDLE Admitting Clinician Unavailable JOSE CARRINGTON Admitting Clinician Unavailable Byron Admitting Clinician Unavailable WAYNE Admitting Clinician Unavailable MD MICHAEL BLACK Admitting Clinician Unavailable AARON Admitting Clinician Unavailable MD AARON EWali Admitting Clinician Unavailable Payers Payer Name Policy Type Policy Number Effective Date Expiration Date Frannie AMATO OPEN ACCESS [id number] 2021 00:00:00 HMO NAP Problems This patient has no known problems. Allergies, Adverse Reactions, Alerts Allergy Allergy Status Severity Reaction(s) Onset Inactive Treating Comm ents Source Name Type Date Date Clinician No Known DA Active U 2020-07 [facility]ie 07-31 Clear s 00:00: Eli 00 [facility] NO KNOWN Allergy Active [facility] Medications This patient has no known [...] / Time Performed Performing Clinician Cresencio mays [id number] 2021-06-01 00:00:00 AFSHIN [facility] [id number] 2021-05-31 00:00:00 BYRONRI MICHELLE [facility] [id number] 2021-05-31 00:00:00 AFSHIN [facility] Encounters Start End Encounter Admission Attending Care Care Encounter Source Date/Time Date/Time Type Type Clinicians Facility Department ID 2021-08-17 2021-08-17 Outpatient RONIT, [facility] [id number] [place] 00:00:00 00:00:00 INDERJIT [address] 2021-06-28 2021-06-30 Inpatient VIRGINIE BLACK [facility] [id number] [place] 00:00:00 00:00:[address] 2021-06-24 2021-06-24 Outpatient AARON [facility] [id number] [place] 00:00:00 00:00:00 NOA [address] 2021-06-11 2021-06-11 Outpatient EL ZEB [facility] [id number] [facility] 11:20:00 15:40:00 IMRAN 2021-06-09 2021-06-09 Outpatient EL [facility] [id number] 379 [facility] 08:03:28 23:59:00 2021-05-31 2021-06-02 Inpatient EM Warren Matthews [facility] INTE [id number] [facility] 11:17:00 14:15:00 [id number] [facility] 2021-05-31 2021-06-02 Inpatient EM Warren Matthews [facility] INTE [id number] [facility] 11:17:00 14:15:00 42 [facility] 2020-09-21 2020-09-24 Inpatient VIRGINIE BLACK [facility] [id number] [place] 00:00:00 00:00:[address] 2020-09-04 2020-09-04 [facility] [id number] [place] 00:00:00 00:00:00 NOA [address] 2020-09-02 2020-09-02 [facility] [id number] [place] 00:00:00 00:00:00 NOA [address] 2020-08-26 2020-08-26 [facility] [id number] [place] 00:00:00 00:00:00 NOA [address] Results Test Description Test Time Test Comments Results Result Comments Source SARS-CoV-2 (COVID-19) RNA [Presence] in Respiratory sp ecimen by 2021-06-24 17:02:09 SHANIA with probe detection Test Item Value Reference Range Interpretation Comme nts SARS-CoV-2 (COVID-19) RNA [Presence] in Respiratory Not detected No t-Detected specimen by SHANIA with probe detection (test code = 12501-4) Whether patient is employed in a healthcare setting (test code = 57651-2) Whether the patient has symptoms related to condition of interest (test code = 64709-2) Patient was hospitalized because of this condition (test code = 45709-9) Whether the patient was admitted to intensive care unit (ICU) for condition of interest (test code = 72648-3) Whether patient resides in a congregate care setting (test code = 24103-1) [id number] 13:31:24 Test Item Value Reference Range Interpretation Comments POTASSIUM (BEAKER) (test code = 5.8 meq/L 3.6-5.5 H 379) Route Driver ID - [id number] ID - [id number] ID - [id number] ID - [id number]/RT-PCR ([facility])2021-06-10 02:43:16 Test Item Value Reference Range Interpretation Comments SARS-COV2/RT-PCR (test code = Negative Negative [id number]) Negative result for this test determines that [...] Healthcare Providers:https://www.molecular.haney/mary/RT SARS-CoV-2 HCP Fact Sheet 51- 198227.pdfFact Sheet for Healthcare Patients:https://www.molecular.haney/mary/RT SARS-CoV-2 Patient Fact Sheet EN 51-573987Y2.pdfBASI METABOLIC [id number] 08:56:22 Test Item Value Reference Range Interpretation [...] 1092) DATA TO CALCULA TE ESTIMATED GFR. Route Driver ID - LITOOperator ID - LITOOperator ID - LITOOperator ID - LITOOperator ID - LITOOperator ID - LITOOperator ID - LITOOperator ID - LITOOperator ID - LITOOperator ID - LITOOperator ID - LITOOperator ID - LITOOperator ID - ELISSA [id number] 08:47:38 Test Item Value Reference Range Interpretation Comments PROTIME (BEAKER) (test 10.7 seconds 9.3-12.0 Final Information code = 759) (Auto Output) INR (BEAKER) (test 0.96 See_Comment Final Inf ormation code = 370) (Auto Output) [Automated mess age] The system [employer] 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 generated this result transmitted ref erence range: Immunity >9.9. The reference r rafat was not used to interpret this result as normal/abnor mal. 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 [facility] COMPREHENSIVE METABOLIC [id number] 05:37:00 Test Item Value Reference Range Interpretation [...] 20-125 N TOTAL (test code = ALKP) [id number] 05:37:00 Test Item Value Reference Range Interpretation Comments PHOSPHOROUS (test code = PHOS) 8.7 MG/DL 2.5-4.9 H [id number] 05:37:00 Test Item Value Reference Range Interpretation Comments MAGNESIUM (test code = MAG) 1.69 mg/dL 1.80-2.40 L CALCIUM [id number] 05:37:00 Test Item Value Reference Range Interpretation Comments CALCIUM IONIZED (test code = BERTHA) 1.03 MMOL/L 1.12-1.32 L CBC W/AUTO [id number] 05:08:00 Test Item Value Reference Range Interpretation [...] REQUIRED (test code NO = MDIFF) GLUCOSE [id number] 00:20:00 Test Item Value Reference Range Interpretation Comments GLUCOSE BEDSIDE (test 116 MG/DL 70-110 H Perfor med by certified code = GLUBED) 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 [facility] GLUCOSE [id number] 20:59:00 Test Item Value Reference Range Interpretation Comments GLUCOSE BEDSIDE (test 113 MG/DL 70-110 H Perfor med by certified code = GLUBED) 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 [facility] GLUCOSE [id number] 20:31:00 Test Item Value Reference Range Interpretation Comments GLUCOSE BEDSIDE (test 126 MG/DL 70-110 H Perfor med by certified code = GLUBED) 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 [facility] GLUCOSE [id number] 20:31:00 Test Item Value Reference Range Interpretation Comments GLUCOSE BEDSIDE (test 86 MG/DL 70-110 N Perfor med by certified code = GLUBED) 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 [facility] GLUCOSE [id number] 20:31:00 Test Item Value Reference Range Interpretation Comments GLUCOSE BEDSIDE (test 162 MG/DL 70-110 H Perfor med by certified code = GLUBED) 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 [facility] COMPREHENSIVE METABOLIC [id number] 09:19:00 Test Item Value Reference Range Interpretation [...] 20-125 N TOTAL (test code = ALKP) [id number] 09:19:00 Test Item Value Reference Range Interpretation Comments PHOSPHOROUS (test code = PHOS) 8.7 MG/DL 2.5-4.9 H [id number] 09:19:00 Test Item Value Reference Range Interpretation Comments MAGNESIUM (test code = MAG) 1.76 mg/dL 1.80-2.40 L CALCIUM [id number] 09:19:00 Test Item Value Reference Range Interpretation Comments CALCIUM IONIZED (test code = BERTHA) 0.95 MMOL/L 1.12-1.32 L CBC W/AUTO [id number] 09:12:00 Test Item Value Reference Range Interpretation [...] REQUIRED (test code NO = MDIFF) GLUCOSE [id number] 07:22:00 Test Item Value Reference Range Interpretation Comments GLUCOSE BEDSIDE (test 96 MG/DL 70-110 N Perfor med by certified code = GLUBED) 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 [facility] GLUCOSE [id number] 01:22:00 Test Item Value Reference Range Interpretation Comments GLUCOSE BEDSIDE (test 121 MG/DL 70-110 H Perfor med by certified code = GLUBED) 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 [facility] BASIC METABOLIC [id number] 22:27:00 Test Item Value Reference Range Interpretation [...] = 7.8 mg/dL 8.0-10.5 L CA) GLUCOSE [id number] 22:13:00 Test Item Value Reference Range Interpretation Comments GLUCOSE BEDSIDE (test 121 MG/DL 70-110 H Perfor med by certified code = GLUBED) 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..] in Respiratory specimen by SHANIA with probe [id number] 03:33:08 Test Item Value Reference Range Interpretation Comments SARS-CoV-2 (COVID-19) RNA Not detected Not-Detected [Presence] in Respiratory specimen by SHANIA with probe detection (test code = 23329-2) SARS-CoV-2 (COVID-19) RNA [Presence] in Respiratory specimen by SHANAI with probe [id number] 23:51:41 Test Item Value Reference Range Interpretation Comments SARS-CoV-2 (COVID-19) RNA Not detected Not-Detected [Presence] in Respiratory specimen by SHANIA with probe detection (test code = 77560-7)
--- NOTE | 2021-09-02 18:19 | ER ---
Nurse's Notes [facility] Name: Galo Abarca Age: 51 yrs Sex: Male : 1970 Arrival Date: 09/02/2021 Time: 17:07 Bed 13 Private MD: Diagnosis: Essential (primary) hypertension;End stage renal disease-on HD;Obesity, unspecified Presentation: 09/02 17:14 Chief complaint: Patient states: HTN episode during dialysis Monday, was seen here. ll1 Today, he started to have burning to upper abd and chest. 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 Coronavirus screen: Vaccine status: Patient reports receiving the 1st dose of the Covid vaccine. Client denies travel out of the [place] in the last 14 days. At this time, the client does not indicate any symptoms associated with coronavirus-19. Ebola Screen: Patient denies travel to an Ebola-affected area in the 21 days before illness onset. Initial Sepsis Screen: Does the patient meet any 2 criteria? No. Patient's initial sepsis screen is negative. Does the patient have a suspected source of infection? No. Patient's initial sepsis screen is negative. Risk Assessment: Do you want to hurt yourself or someone else? Patient reports no desire to harm self or others. Onset of symptoms was September 02, 2021. 17:14 Method Of Arrival: Ambulatory ll1 17:14 Acuity: JAMMIE 2 ll1 Historical: - Allergies: 17:16 No Known Allergies; ll1 - PMHx: 17:16 Dialysis; Hypertensive disorder; ll1 - PSHx: 17:16 Dialysis catheter to right upper chest; ll1 17:17 PD cath done and removed; ll1 - Immunization history:: Client reports receiving the 1st dose of the Covid vaccine, Flu vaccine status is unknown. - Social history:: Smoking status: Patient denies any tobacco usage or history of. Screenin:32 Abuse screen: Denies threats or abuse. Denies injuries from another. Nutritional cb5 screening: No deficits noted. Tuberculosis screening: No symptoms or risk factors identified. Fall Risk None identified. Assessment: 17:30 General: Appears in no apparent distress. Behavior is calm, cooperative, appropriate cb5 for age. Pain: Denies pain. Neuro: No deficits noted. Level of Consciousness is awake, alert, obeys commands, Oriented to person, place, time, situation, Appropriate for age. Cardiovascular: Reports high blood pressure. Respiratory: No deficits noted. GI: No deficits noted. : No deficits noted. EENT: No deficits noted. Derm: No deficits noted. Musculoskeletal: No deficits noted. 18:39 General: several staff attempted P.I.V placement without success. M.D aware. . cb5 Vital Signs: 17:14 BP 206 / 107; Pulse 78; Resp 18; Temp 98.5; Pulse Ox 100% ; Weight 148.78 kg; Height 6 ll1 ft. 2 in. (187.96 cm); Pain 1/10; 20:34 BP 142 / 78 LA Supine (auto/reg); Pulse 68 MON; Resp 18 S; Pulse Ox 99% on R/A; sv1 22:00 BP 130 / 61 RA Supine (auto/lg); Pulse 72 MON; Resp 18 S; Pulse Ox 100% on R/A; sv1 03/ 00:05 BP 125 / 81 LA Supine (auto/reg); Pulse 72 MON; Resp 16; Pulse Ox 99% on R/A; sv1 01:02 BP 154 / 85 RA Supine (auto/lg); Pulse 73 MON; Resp 16 S; Temp 98.7(O); Pulse Ox 100% sv1 on R/A; 03 17:14 Body Mass Index 42.11 (148.78 kg, 187.96 cm) ll1 ED Course: 09/02 17:07 Patient arrived in ED. ds1 17:16 Triage completed. ll1 17:17 Arm band placed on Patient placed in an exam room, on a stretcher. ll1 17:31 Karis Berman, RN is Primary Nurse. cb5 17:33 Patient has correct armband on for positive identification. Bed in low position. Call cb5 light in reach. Side rails up X 1. 17:33 No provider procedures requiring assistance completed. cb5 17:52 Magdiel Hung MD is Attending Physician. claudia 18:17 Cruz Wilson MD is Hospitalizing Provider. claudia 18:57 XRAY Chest (1 view) In Process Unspecified. EDMS 18:57 Troponin High Sensitivity Sent. cb5 18:57 Magnesium Sent. cb5 18:57 NT PRO-BNP Sent. cb5 18:57 CBC with Automated Diff Sent. cb5 18:57 Liver (Hepatic) Function Sent. cb5 18:57 Basic Metabolic Panel Sent. cb5 18:58 Basic Metabolic Panel Sent. cb5 18:58 CBC with Diff Sent. cb5 18:58 LFT's Sent. cb5 18:58 Magnesium Sent. cb5 18:58 NT PRO-BNP Sent. cb5 18:58 Troponin HS Sent. cb5 18:58 PT-INR Sent. cb5 19:01 Report given to Kip Mccracken. cb5 21:46 COVID-19/FLU A+B (Document "Date of Onset" if Symptomatic) Sent. sv1 21:58 COVID-19/FLU A+B (Document "Date of Onset" if Symptomatic) Sent. sv1 09/03 01:02 Patient admitted, IV remains in place. sv1 Administered Medications: 09/02 18:15 Drug: Aspirin Chewable Tablet 324 mg Route: PO; cb5 18:28 Drug: HydrALAZINE 25 mg Route: PO; cb5 18:57 Drug: ProTONIX (pantoprazole) 40 mg Route: IVP; Site: Other; cb5 18:57 Drug: hydrALAZINE 10 mg {Note: left chest wall.} Route: IVP; Site: Other; cb5 Outcome: 18:19 Decision to Hospitalize by Provider. [facility] 09/03 01:02 Admitted to Med/surg accompanied by tech, via stretcher. sv1 Condition: improved Instructed on the need for admit. 01:40 Patient left the ED. sv1 Signatures: Dispatcher [employer] EDMS Magdiel Hung MD MD cha Sanford, Demi ds1 Steph Stafford, ARAM RN ll1 Nawaf Donald, ARAM RN sv1 Karis Berman, RN RN cb5 Corrections: (The following items were deleted from the chart) 09/02 17:17 17:14 Pulse 78bpm; Resp 18bpm; Pulse Ox 100%; Temp 98.5F; 148.78 kg; Height 6 ft. 2 ll1 in.; BMI: 42.1; Pain 1/10; ll1 17:22 17:14 Acuity: JAMMIE 3 ll1 ll1
--- NOTE | 2021-09-02 18:19 | EDPHYS ---
Physician Documentation [facility] Name: Galo Abarca Age: 51 yrs Sex: Male : 1970 Arrival Date: 09/02/2021 Time: 17:07 Bed 13 Private MD: CHAZ Physician Magdiel Hung HPI: 09/02 18:06 This 51 yrs old Male presents to ER via Ambulatory with complaints of High claudia Blood Pressure. 18:06 The patient has elevated blood pressure and discovered this at home. Onset: The claudia symptoms/episode began/occurred just prior to arrival, today. Modifying factors: The symptoms are aggravated by activity, The symptoms are alleviated by remaining still. Associated signs and symptoms: Pertinent positives: chest pain. Severity of symptoms: At its worst the blood pressure was moderate, in the emergency department the blood pressure is unchanged. The patient has experienced similar episodes in the past, a few times. Historical: - Allergies: 17:16 No Known Allergies; ll1 - PMHx: 17:16 Dialysis; Hypertensive disorder; ll1 - PSHx: 17:16 Dialysis catheter to right upper chest; ll1 17:17 PD cath done and removed; ll1 - Immunization history:: Client reports receiving the 1st dose of the Covid vaccine, Flu vaccine status is unknown. - Social history:: Smoking status: Patient denies any tobacco usage or history of. ROS: 18:10 Constitutional: Negative for fever, chills, and weight loss, Eyes: Negative for injury, claudia pain, redness, and discharge, ENT: Negative for injury, pain, and discharge, Neck: Negative for injury, pain, and swelling, Respiratory: Negative for shortness of breath, cough, wheezing, and pleuritic chest pain, Abdomen/GI: Negative for abdominal pain, nausea, vomiting, diarrhea, and constipation, Back: Negative for injury and pain, : Negative for injury, bleeding, discharge, and swelling, MS/Extremity: Negative for injury and deformity, Skin: Negative for injury, rash, and discoloration, Neuro: Negative for headache, weakness, numbness, tingling, and seizure, Psych: Negative for depression, anxiety, suicide ideation, homicidal ideation, and hallucinations, Allergy/Immunology: Negative for hives, rash, and allergies, Endocrine: Negative for neck swelling, polydipsia, polyuria, polyphagia, and marked weight changes, Hematologic/Lymphatic: Negative for swollen nodes, abnormal bleeding, and unusual bruising. 18:10 Cardiovascular: Positive for chest pain, of the epigastric area. 18:10 Abdomen/GI: Positive for abdominal pain, of the epigastric area, right upper quadrant and left upper quadrant. Exam: 18:10 Constitutional: This is a well developed, well nourished patient who is awake, alert, claudia and in no acute distress. Head/Face: Normocephalic, atraumatic. Eyes: Pupils equal round and reactive to light, extra-ocular motions intact. Lids and lashes normal. Conjunctiva and sclera are non-icteric and not injected. Cornea within normal limits. Periorbital areas with no swelling, redness, or edema. ENT: Nares patent. No nasal discharge, no septal abnormalities noted. Tympanic membranes are normal and external auditory canals are clear. Oropharynx with no redness, swelling, or masses, exudates, or evidence of obstruction, uvula midline. Mucous membranes moist. Neck: Trachea midline, no thyromegaly or masses palpated, and no cervical lymphadenopathy. Supple, full range of motion without nuchal rigidity, or vertebral point tenderness. No Meningismus. Chest/axilla: Normal chest wall appearance and motion. Nontender with no deformity. No lesions are appreciated. Cardiovascular: Regular rate and rhythm with a normal S1 and S2. No gallops, murmurs, or rubs. Normal PMI, no JVD. No pulse deficits. Respiratory: Lungs have equal breath sounds bilaterally, clear to auscultation and percussion. No rales, rhonchi or wheezes noted. No increased work of breathing, no retractions or nasal flaring. Abdomen/GI: Soft, non-tender, with normal bowel sounds. No distension or tympany. No guarding or rebound. No evidence of tenderness throughout. Back: No spinal tenderness. No costovertebral tenderness. Full range of motion. Male : Normal genitalia with no discharge or lesions. Skin: Warm, dry with normal turgor. Normal color with no rashes, no lesions, and no evidence of cellulitis. MS/ Extremity: Pulses equal, no cyanosis. Neurovascular intact. Full, normal range of motion. Neuro: Awake and alert, GCS 15, oriented to person, place, time, and situation. Cranial nerves II-XII grossly intact. Motor strength 5/5 in all extremities. Sensory grossly intact. Cerebellar exam normal. Normal gait. Psych: Awake, alert, with orientation to person, place and time. Behavior, mood, and affect are within normal limits. 18:10 ECG was reviewed by the Attending Physician. Vital Signs: 17:14 BP 206 / 107; Pulse 78; Resp 18; Temp 98.5; Pulse Ox 100% ; Weight 148.78 kg; Height 6 ll1 ft. 2 in. (187.96 cm); Pain /10; 20:34 BP 142 / 78 LA Supine (auto/reg); Pulse 68 MON; Resp 18 S; Pulse Ox 99% on R/A; sv1 22:00 BP 130 / 61 RA Supine (auto/lg); Pulse 72 MON; Resp 18 S; Pulse Ox 100% on R/A; sv1 09/03 00:05 BP 125 / 81 LA Supine (auto/reg); Pulse 72 MON; Resp 16; Pulse Ox 99% on R/A; sv1 01:02 BP 154 / 85 RA Supine (auto/lg); Pulse 73 MON; Resp 16 S; Temp 98.7(O); Pulse Ox 100% sv1 on R/A; 09/02 17:14 Body Mass Index 42.11 (148.78 kg, 187.96 cm) ll1 MDM: 09/02 17:52 Patient medically screened. claudia 18:12 Differential diagnosis: abnormal EKG, acute myocardial infarction, acute pericarditis, claudia coronary artery disease chest wall pain, congestive heart failure Cholelithiasis costochondritis, hypertensive crisis, Malignant HTN, gastroesophageal reflux disease (GERD), hiatal hernia. Differential Diagnosis. HEART Score: History: Moderately Suspicious (1), ECG: Non specific repolarization disturbance / LBTB / PM (1), Age: > 45 and < 65 years (1), Risk Factors: > or = 3 Risk factors for atherosclerotic disease (2), [Hypercholesterolemia] [Hypertension] [DM] [+ Family HX] [Obesity] Troponin: < or = 1 x Normal Limit (0). The patient was given aspirin in the Emergency Department. The patient's deep vein thrombosis risk score was calculated as follows: Total Score: 0. This patient was found to be at low risk for a deep vein thrombosis by using the Well's assessment criteria. The patient's pulmonary embolism risk score was calculated as follows: Total Score: 0-2 points. This patient was found to be at low risk for a pulmonary embolism by using the Well's assessment criteria. DOROTHY Risk Score: 1 - Three or more CAD risk factors, 1- Known CAD, 1 - ASA use in past 7 days, TOTAL SCORE = 3. Data reviewed: vital signs, nurses notes. Data interpreted: library monitor: rate is 78 beats/min, rhythm is regular, Pulse oximetry: on room air is 100 %. Test interpretation: by ED physician or midlevel provider: ECG, plain radiologic studies. Counseling: I had a detailed discussion with the patient and/or guardian regarding: the historical points, exam findings, and any diagnostic results supporting the discharge/admit diagnosis, lab results, radiology results, the need for further work-up and treatment in the hospital. 09/02 18:05 Order name: Basic Metabolic Panel [facility] 09/02 18:05 Order name: CBC with Diff [facility] 09/02 18:05 Order name: LFT's [facility] 09/02 18:05 Order name: Magnesium [facility] 09/02 18:05 Order name: NT PRO-BNP [facility] 09/02 18:05 Order name: PT-INR; Complete Time: 22:42 [facility] 09/02 18:05 Order name: Troponin HS [facility] 09/02 18:05 Order name: Basic Metabolic Panel; Complete Time: 22:42 EDMS 09/02 22:42 Interpretation: Normal except: GLUC 109; BUN 51; GFR 6; CA 8.2. cp 09/02 18:05 Order name: CBC with Automated Diff; Complete Time: 22:42 EDMS 09/02 22:42 Interpretation: Normal except: RBC 3.73; HGB 11.1; HCT 33.8. cp 09/02 18:05 Order name: Liver (Hepatic) Function; Complete Time: 22:42 EDMS 09/02 18:05 Order name: Magnesium; Complete Time: 22:42 EDMS 09/02 18:05 Order name: NT PRO-BNP; Complete Time: 22:42 EDMS 09/02 22:42 Interpretation: NT PRO-BNP 33277; Reviewed. cp 09/02 18:05 Order name: Troponin High Sensitivity; Complete Time: 22:42 EDMS 09/02 20:24 Order name: COVID-19/FLU A+B (Document "Date of Onset" if Symptomatic); Complete Time: cs9 22:42 09/02 18:05 Order name: XRAY Chest (1 view); Complete Time: 22:42 [facility] 09/02 18:05 Order name: EKG; Complete Time: 18:05 [facility] 09/03 00:05 Order name: CONS Physician Consult EDMS 09/03 00:05 Order name: EKG Electrocardiogram EDMS 09/03 00:05 Order name: EKG Electrocardiogram EDMS 09/03 00:05 Order name: EKG Electrocardiogram EDMS 09/03 00:05 Order name: EKG Electrocardiogram EDMS 09/03 00:06 Order name: Basic Metabolic Panel EDMS 09/03 00:06 Order name: CBC with Automated Diff EDMS 09/03 00:06 Order name: Troponin High Sensitivity EDMS 09/03 00:06 Order name: Troponin High Sensitivity EDMS 09/03 00:06 Order name: Troponin High Sensitivity EDMS 09/02 18:05 Order name: Cardiac monitoring; Complete Time: 18:05 [facility] 09/02 18:05 Order name: EKG - Nurse/Tech; Complete Time: 18:58 [facility] 09/02 18:05 Order name: IV Saline Lock; Complete Time: 18:58 [facility] 09/02 18:05 Order name: Labs collected and sent; Complete Time: 18:58 [facility] 09/02 18:05 Order name: O2 Per Protocol; Complete Time: 18:05 [facility] 09/02 18:05 Order name: O2 Sat Monitoring; Complete Time: 18:05 [facility] 09/03 00:06 Order name: EKG Electrocardiogram EDMS EC:10 Rate is 78 beats/min. Rhythm is regular. QRS [place] is Normal. CA interval is normal. QRS claudia interval is normal. QT interval is normal. No Q waves. T waves are Normal. No ST changes noted. Clinical impression: NSR w/ Non-specific ST/T Changes and No evidence of ischemia. Interpreted by me. Reviewed by me. Administered Medications: 18:15 Drug: Aspirin Chewable Tablet 324 mg Route: PO; cb5 18:28 Drug: HydrALAZINE 25 mg Route: PO; cb5 18:57 Drug: ProTONIX (pantoprazole) 40 mg Route: IVP; Site: Other; cb5 18:57 Drug: hydrALAZINE 10 mg {Note: left chest wall.} Route: IVP; Site: Other; cb5 Disposition Summary: 09/02/21 18:19 Hospitalization Ordered Hospitalization Status: Observation claudia Provider: Cruz Wilson cha Location: Telemetry/MedSurg (observation) claudia Condition: Stable claudia Problem: new claudia Symptoms: have improved claudia Bed/Room Type: Standard claudia Room Assignment: 214(09/03/21 00:35) cg Diagnosis - Essential (primary) hypertension claudia - End stage renal disease - on HD claudia - Obesity, unspecified claudia Forms: - Medication Reconciliation Form claudia - SBAR form claudia Signatures: Dispatcher [employer] EDMS Magdiel Hung MD MD cha Page, Corey, PA PA cp Garcia, Cindy, RN RN cg Steph Stafford RN RN ll1 Karis Berman RN RN cb5 Corrections: (The following items were deleted from the chart) 09/03 00:35 09/02 18:19 claudia cg
[2021-09-02] MEDS ORDERED: HYDRALAZINE HCL 20 MG/ML VIAL ONE (18:21)
[2021-09-02] MEDS ORDERED: ASPIRIN 81 MG CHEWABLE TABLET ONE (18:21)
[2021-09-02] MEDS ORDERED: HYDRALAZINE HCL 25 MG TABLET ONE (18:21)
[2021-09-02] MEDS ORDERED: PANTOPRAZOLE 40 MG INJ ONE (18:22)
[2021-09-02 19:03] LABS: Absolute Lymphocytes (CBC) 1.6 K/uL (0.7-4.9); Hematocrit 33.8 % (39.6-49.0); Lymphocytes % 29.7 % (15.3-44.8); MPV 8.7 fL (7.6-11.3); RBC Red Blood Cell Count 3.73 M/uL (4.33-5.43)
[2021-09-02 19:19] LABS: Protime INR 1.03
--- NOTE | 2021-09-02 19:28 | RAD REPORT ---
EXAM DESCRIPTION: RAD - Chest Single View - 09/02/2021 6:57 pm CLINICAL HISTORY: COUGH COMPARISON: Portable 04/12/2021 TECHNIQUE: AP portable chest image was obtained 09/02/2021 6:57 pm . FINDINGS: No focal mass consolidation. No significant failure or volume overload. Heart size is prom inent but stable. No abnormal vascular engorgement. Right-sided double-lumen dialysis catheter in [place] ce. No measurable pleural effusion and no pneumothorax. No acute bony abnormality seen. No acute aort ic findings suspected. IMPRESSION: No acute cardiopulmonary process. No significant change from comparison study.
[2021-09-02 20:20] LABS: ALT/SGPT 16 U/L (12-78); AST/SGOT 8 U/L (15-37); Albumin 3.9 g/dL (3.4-5.0); Alkaline Phosphatase 69 U/L (45-117); BUN Blood Urea Nitrogen 51 mg/dL (7-18); Bicarbonate 22 mmol/L (21-32); Bilirubin Direct < 0.1 mg/dL (0-0.2); Bilirubin Total 0.4 mg/dL (0.2-1.0); Glucose Level 109 mg/dL (74-106); Magnesium 2.5 mg/dL (1.8-2.4); NT PRO-BNP 10022 pg/mL (<125); Protein, Total 7.4 g/dL (6.4-8.2); Sodium Level 139 mmol/L (136-145)
[2021-09-02 22:27] LABS: SARS-COV-2 RT PCR NEGATIVE (NEGATIVE)
[2021-09-02] MEDS ORDERED: ONDANSETRON 4 MG/2 ML VIAL IV PRN (23:57)
[2021-09-03 01:54] VITALS: BMI 41.3
[2021-09-03 05:22] LABS: Absolute Lymphocytes (CBC) 1.5 K/uL (0.7-4.9); Hematocrit 32.2 % (39.6-49.0); Lymphocytes % 26.6 % (15.3-44.8); MPV 8.4 fL (7.6-11.3); RBC Red Blood Cell Count 3.53 M/uL (4.33-5.43)
[2021-09-03 05:41] LABS: Potassium 4.7 mmol/L (3.5-5.1); Troponin High Sensitivity 19.5 pg/mL (<58.9)
[2021-09-03] MEDS ORDERED: INFLUENZA VACCINE (for 6+ mo) 0.5 ML DOSE IMVAC ONE (08:00)
[2021-09-03] MEDS ORDERED: lisinopriL 20 MG TAB PO SCH ×2 (09:00→21:00)
[2021-09-03] MEDS ORDERED: HYDRALAZINE HCL 25 MG TABLET PO SCH ×2 (09:00→14:00)
[2021-09-03] MEDS ORDERED: ASPIRIN EC 81 MG TAB PO SCH (09:00)
[2021-09-03] MEDS ORDERED: carvediloL 6.25 MG TAB PO SCH (09:00)
[2021-09-03 09:06] VITALS: O2SAT 99
[2021-09-03 10:03] VITALS: BP 195/97; TEMP 97
--- NOTE | 2021-09-03 11:29 | EKG ---
Test Date: 2021-09-03 Test Time: 09:01:17 Medical Doctor Nuclear Medicine: RUBEN MEASUREMENT RESULTS: Intervals: Rate: 63 AK: 204 QRSD: 106 QT: 444 QTc: 454 [place]: P: 59 AK: 204 QRS: 32 T: 61 INTERPRETIVE STATEMENTS: Normal sinus rhythm Normal ECG Compared to ECG 09/02/2021 18:13:57 Right-axis deviation no longer present Electronically Signed On 09-03-21 11:28:28 ORDER PROCESSING CLERK by Oren Sosa
--- NOTE | 2021-09-03 11:32 | EKG ---
Test Date: 2021-09-02 Test Time: 18:13:57 Mobile Developer: MEASUREMENT RESULTS: Intervals: Rate: 68 [place]: 192 QRSD: 100 QT: 436 QTc: 463 [place]: P: 56 [place]: 192 QRS: 136 T: 45 INTERPRETIVE STATEMENTS: Normal sinus rhythm Right axis deviation Abnormal ECG Compared to ECG 04/12/2021 12:26:26 Right-axis deviation now present Electronically Signed On 09-03-21 11:29:03 BED AND BREAKFAST OPERATOR by Oren Sosa
--- NOTE | 2021-09-03 12:26 | P.CNS ---
Date of Consult: 09/03/21 Reason for Consult: Alex Mcdonald History of Present Illness: A 51 Y/o man with PMhx of ESRd on HD MWF via catheter, HTN and morbid obesity Pt presented with HTN and chest pain pt have HX of uncontrolled BP, recently started on hydralazine , pt can not tolerate high UF due to cramping, he switched from PD to HD pt stated he is slowly losing wt in ER SBP 200, troponin I 20 ROS General : denies fever, chills, WT change weakness, insomnia HEENT: Denies dry, vision changes and headache Resp: denies SOB, cough or wheezes Cardiovascular: : chest pain, resolved now, denied palpitation GI: denies abdominal pain, diarrhea or constipation : denies dysuria, urgency, foamy urine or blood tinged urine [place]: denies muscle aches, joint pain Endo: denies polyuria and and polydipsia Extre: denies pain numbness , have swelling swelling Physical exam General: AAOx3, NAD, obese CHEST; CTAB, no wheezes or rales HEART : RRR. Normal S1,2 no murmur or rub Abd: soft, Nt Ext: +_2 edema, dry skin ,scaling Skin : No rash A/p ESRD on HD MWF HD today , will aim for 2liters UF , pt refuse to go more than 2 renal dose meds HTN Urgency BP better controlled resume home meds salt and fluid restriction HD today Edema on bumes and HD salt restriction Chest pain resolved due to HTN urgency W/U as an OP total time spent 45 minutes, pt can be discharged from nephrology point of view after HD Allergies No Known Allergies Allergy (Verified 09/03/21 02:00) Home Medications: Carvedilol [Coreg] 25 mg PO BID 09/03/21 Hydralazine [Apresoline] 25 mg PO TID 09/03/21 Lisinopril [Zestril] 20 mg PO BID 09/03/21 Sevelamer Carbonate [Renvela] 800 mg PO TIDWM 09/03/21 Sucroferric Oxyhydroxide [Velphoro] 500 mg PO TIDWM 09/03/21 - Past Medical/Surgical History Diabetic: No -: ESRD -: HTN - Family History Father Medical History: Hypertension - Social History Smoking Status: Former smoker Alcohol use: No CD- Drugs: No Caffeine use: No Place of Residence: Home Physical Examination Temp Pulse Resp BP Pulse Ox 97.0 F 68 14 195/97 H 100 09/03/21 08:00 09/03/21 10:05 09/03/21 08:00 09/03/21 10:05 09/03/21 08:00 Laboratory Data (last 24 hrs) 09/02/21 18:45: PT 11.9, INR 1.03 09/02/21 18:45: WBC 5.50, Hgb 11.1 L, Hct 33.8 L, Plt Count 173 09/02/21 18:45: Sodium 139, Potassium 5.0, BUN 51 H, Creatinine 9.51 H* D, Glucose 109 H, Magnesium 2.5 H, Total Bilirubin 0.4, AST 8 L, ALT 16, Alkaline Phosphatase 69
--- NOTE | 2021-09-03 12:30 | P.SSS ---
Patient History Date of Service: 09/03/21 Reason for admission: ABDOMEN PAIN History of Present Illness: MR. DIAS IS A CKD 5 PATIENT WHO IS ON HEMODIALYSIS COMES WITH UPPER ABDOMEN PAIN THAT WENT TO [facility] AND IS GONE NOW. IT WAS THERE FOR TWO HOURS. HIS CE ARE NEGATIVE. HE AT THE SAME TIME HAD SMALL PINCH ON L ARM ONLY ON ONE SPOT. HE IS VERY COMFORTABLE NOW. Allergies No Known Allergies Allergy (Verified 09/03/21 02:00) Home Medications: Carvedilol [Coreg] 25 mg PO BID 09/03/21 Hydralazine [Apresoline] 25 mg PO TID 09/03/21 Lisinopril [Zestril] 20 mg PO BID 09/03/21 Sevelamer Carbonate [Renvela] 800 mg PO TIDWM 09/03/21 Sucroferric Oxyhydroxide [Velphoro] 500 mg PO TIDWM 09/03/21 - Past Medical/Surgical History Diabetic: No -: ESRD -: HTN - Family History Father -: Hypertension - Social History Smoking Status: Never smoker Alcohol use: No CD- Drugs: No Caffeine use: No Place of Residence: Home Review of Systems 10-point ROS is otherwise unremarkable Physical Examination - Vital Signs Temperature: 97.0 F Blood Pressure: 195/97 Pulse: 68 Respirations: 14 Pulse Ox (%): 100 - Physical Exam General: Alert, In no apparent distress, Obese HEENT: Atraumatic, PERRLA, Mucous membr. moist/pink, EOMI, Sclerae nonicteric Neck: Supple, 2+ carotid pulse no bruit, No LAD, Without JVD or thyroid abnormality Respiratory: Clear to auscultation bilaterally, Normal air movement Cardiovascular: Regular rate/rhythm, Normal S1 S2 Gastrointestinal: Normal bowel sounds, No tenderness Musculoskeletal: No tenderness Integumentary: No rashes Neurological: Normal gait, Normal speech, Normal strength at 5/5 x4 extr, Normal tone, Normal affect Lymphatics: No axilla or inguinal lymphadenopathy - Studies Laboratory Data (last 24 hrs) 09/02/21 18:45: PT 11.9, INR 1.03 09/02/21 18:45: WBC 5.50, Hgb 11.1 L, Hct 33.8 L, Plt Count 173 09/02/21 18:45: Sodium 139, Potassium 5.0, BUN 51 H, Creatinine 9.51 H* D, Glucose 109 H, Magnesium 2.5 H, Total Bilirubin 0.4, AST 8 L, ALT 16, Alkaline Phosphatase 69 - Diagnosis (Problem(s)) (1) Epigastric pain Current Visit: Yes Status: Acute Plan: DR. NOE WILL DO OUTPATIENT WORK UP. (2) CKD stage 5 secondary to hypertension Current Visit: Yes Status: Chronic Plan: ON HD AND MANAGED BY DR CALLE. HE DOES NOT COME TO MY OFFICE ROUTINELY EVEN ONCE A YEAR. HE IS TOTALLY MANAGED BY DR. CALLE. - Disposition Disposition: ROUTINE DISCHARGE
[2021-09-03] MEDS ORDERED: SEVELAMER CARBONATE 800 MG TABLET PO SCH (17:00)
[2021-09-03] MEDS ORDERED: HOME MED 1 EA UNK (Sucroferric Oxyhydroxide [Velphoro] 500 MG Tab.Chew) PO SCH (17:00)
[2021-09-03] MEDS ORDERED: carvediloL 25 MG TAB PO SCH (21:00)
--- NOTE | 2021-09-04 21:03 | CON ---
Date of Consultation: 09/03/2021 Reason For Consultation: Chest pain. History Of Present Illness: Mr. Abarca is a 51-year-old who has a history of end-stage renal disease. His creatinine is 10.7. He came in with a blood pressure of 206/107 and BNP is 100,000. His chest pain was mostly mid epigastric. Denied any nausea, vomiting, diaphoresis, PND, orthopnea, pedal milad ma, palpitation, or syncope. His troponin was negative. EKG was unremarkable. Chest x-ray was unre markable. Past Medical History: Include end-stage renal disease and hypertension. At one point, he was having peritoneal dialysis and apparently there were some issues with the catheter with possible spasm, so he is now on hemodialysis. Allergies: NONE. Medications: Include Coreg, hydralazine, lisinopril, Norvasc. Review of Systems: Negative. Social History: Negative. Family History: Noncontributory. Physical Examination: Vital Signs: Initial blood pressure was 206/107, it was 160/72 when I saw him with a sinus rhythm. HEENT: Negative. Neck: Supple. No bruit. Chest: Clear. Cardiac: Revealed a regular rhythm and rate with an S4 gallops. Abdomen: Benign. Extremities: Revealed no clubbing, cyanosis, or edema. Diagnostic Data: As stated earlier. Impression And Plan: The patient with risk factors for heart disease including end-stage renal disea se and hypertension. He has ruled out for myocardial infarction. I think his symptoms are more like ly gastric in origin. Chest x-ray is negative. Troponin is negative. EKG is unremarkable. I am co mfortable with him going home and I will make arrangements for him to have an echocardiogram, MMPI in the near future and see me in the office. TEREZA/ASTONL Voice ID: [id number] Report ID: [id number]
== END 2021-09-03 15:30 | disposition home or self-care (01) ==
LOC: ER 17:07 → ERHOLD 23:56 → 2ND 09-03 00:44
PROVIDERS: ADMIT Internal Medicine; ATTEND Internal Medicine
DX: R10.13 Epigastric pain (principal); I16.0 Hypertensive urgency; I12.0 Hypertensive chronic kidney disease with stage 5 chronic kidney disease or end stage renal disease; N18.6 End stage renal disease; Z99.2 Dependence on renal dialysis; E66.01 Morbid (severe) obesity due to excess calories; Z68.41 Body mass index [BMI] 40.0-44.9, adult; Z20.822 Contact with and (suspected) exposure to COVID-19; Z82.49 Family history of ischemic heart disease and other diseases of the circulatory system
CPT/HCPCS: 93005 ×2; 85025 ×2; 80048 ×2; 36415; 83735; 85610; 80076; 84484 ×4; 83880; 0240U; 71045; 96375; 96374; 99285; J0360; C9113; J1644; G0378